=== PATIENT | female | born 1980 | race African-American/Black ===

== ENCOUNTER 2017-06-26 06:07 | Inpatient (IN) ==
[2017-06-26] MEDS ORDERED: INSULIN REGULAR 100 UNIT/ML IV STA (06:42)
[2017-06-26] MEDS ORDERED: ONDANSETRON 4 MG/2 ML VIAL IV STA (06:42)
[2017-06-26] MEDS ORDERED: SODIUM CHLORIDE 0.9% 2,000 ML IV STA (06:42)
[2017-06-26] MEDS ORDERED: METOCLOPRAMIDE 10 MG/2 ML VIAL IV STA (06:42)
[2017-06-26] MEDS ORDERED: KETOROLAC 30 MG/1 ML VIAL IV STA (06:46)
[2017-06-26 06:56] LABS: Basophils % 0.1 % (0.0-0.8); Hematocrit 41.7 VOL% (35.7-47.0); Hemoglobin 13.7 GM/DL (12.0-16.0); Immature Granulocytes % 0.5 %; Immature Granulocytes Absolute 0.09 #; Lymphocytes # 1.2 10*3/uL (1.4-4.0); Lymphocytes % 6.9 % (21.3-54.2); Mean Corpuscular HGB Conc 32.9 GM/DL (32-36); Mean Corpuscular Hemoglobin 31 PG (27-34); Mean Corpuscular Volume 93.3 FL (87-102); Mean Platelet Volume 11.7 FL (9.6-12.0); Monocytes # 0.7 10*3/uL (0.11-0.8); Monocytes % 4.2 % (1.7-12.7); Neutrophils # 14.6 10*3/uL (1.4-7.4); Neutrophils % 88.3 % (38.7-73.9); Platelet Count 233 T/CUMM (130-400); Red Blood Count 4.47 MC/CUMM (3.8-5.5); Red Cell Distribution Width 14.6 % (9.3-17.3); White Blood Count 16.6 T/CUMM (4-12)
[2017-06-26] MEDS ORDERED: METOCLOPRAMIDE 10 MG/2 ML VIAL ONE (07:08)
[2017-06-26] MEDS ORDERED: KETOROLAC 30 MG/1 ML VIAL ONE (07:08)
[2017-06-26] MEDS ORDERED: ONDANSETRON 4 MG/2 ML VIAL ONE (07:08)
[2017-06-26] MEDS ORDERED: INSULIN REGULAR 100 UNIT/ML ONE (07:11)
[2017-06-26 07:22] LABS: ABG Base Excess -14.7 MMOL/L (-2.5-2.5); ABG HCO3 13.4 MMOL/L (20-26); ABG Oxygen Saturation 98.5 % (95-100); ABG PH 7.306 (7.35-7.45); Allen Test Positive; Pt O2 Delivery Device Room Air
[2017-06-26 07:25] LABS: ABG PCO2 20.4 MM HG (35-48)
[2017-06-26 07:39] LABS: Bilirubin,Total 0.4 MG/DL (0.2-1.0); Calcium 9.6 MG/DL (8.5-10.1); Osmolality,Calculated 294.2 MOS/KG (273-304); Potassium 4.5 MMOL/L (3.5-5.1)
[2017-06-26 07:43] LABS: Lactic Acid 2.1 MMOL/L (0.4-2.0)
[2017-06-26 08:15] LABS: Apearance,Urine CLOUDY (Clear); Bacteria,Urine Occasional /HPF (Few); Bilirubin,Urine Negative (Negative); Blood, Urine Moderate mg/dL (Negative); Glucose,Urine (UA) >=500 mg/dL (Negative); Ketones,Urine 80 mg/dL (Negative); Nitrite,Urine Negative (Negative); Protein,Urine 100 MG/DL; RBC,Urine 13 /HPF (0-4); Squamous Epithelial Cell,Urine Moderate /HPF (0-10); Urine Color Yellow (Yellow); Urine Specific Gravity 1.018 (1.001-1.035); Urine Urobilinogen < 2.0 EU/DL (0.2-1.0); WBC,Urine 5 /HPF (0-6)
[2017-06-26] MEDS ORDERED: LEVOFLOXACIN INJ 750 MG in PREMIX 1 EACH IV STA (08:28)
[2017-06-26] MEDS ORDERED: LEVOFLOXACIN INJ 150 ML IV ONE (08:55)
[2017-06-26] MEDS ORDERED: SODIUM CHLORIDE 0.9% IV PRN (09:18)
[2017-06-26] MEDS ORDERED: SODIUM PHOSPHATE IV PRN (09:18)
[2017-06-26] MEDS ORDERED: DEXTROSE 50% 25 GM/50 ML VIAL IV PRN ×3 (09:18→23:51)
[2017-06-26] MEDS ORDERED: SODIUM BICARB INJ 100 MEQ in STERILE WATER INJ 400 ML IV PRN (09:18)
[2017-06-26] MEDS ORDERED: ACETAMINOPHEN 325 MG TABLET PO PRN (09:27)
[2017-06-26] MEDS ORDERED: MAGNESIUM SULF RIDER 4 GM in PREMIX 1 EACH IV PRN (09:27)
[2017-06-26] MEDS ORDERED: POTASSIUM CHLORIDE RIDER 10 MEQ in PREMIX 1 EACH IV PRN (09:27)
[2017-06-26] MEDS ORDERED: MAGNESIUM SULF RIDER 2 GM in PREMIX 1 EACH IV PRN (09:27)
[2017-06-26] MEDS ORDERED: NICOTINE 21 MG/24 HR PATCH TRANSDERM PRN (09:27)
[2017-06-26] MEDS ORDERED: tiZANidine 4 MG TABLET PO PRN (09:42)
[2017-06-26] MEDS ORDERED: INSULIN REGULAR DRIP 100 ML IV SCH (10:00)
[2017-06-26] MEDS ORDERED: ALBUTEROL 2.5 MG/3 ML NEB RESP TX PRN (10:00)
[2017-06-26] MEDS: ENOXAPARIN 40 MG/0.4 ML SYRINGE SUBCUT SCH (10:18)
[2017-06-26] MEDS: MORPHINE 2 MG/1 ML SYRINGE IV PRN ×2 (10:19→21:07)
[2017-06-26] MEDS: PANTOPRAZOLE 40 MG TABLET PO SCH (10:25)
[2017-06-26] MEDS: PREGABALIN 75 MG CAPSULE PO SCH ×2 (10:25→20:03)
[2017-06-26] MEDS: SODIUM CHLORIDE 0.9% 1,000 ML IV SCH ×3 (10:26→13:26)
[2017-06-26 10:32] LABS: Calcium 8.5 MG/DL (8.5-10.1); Osmolality,Calculated 301.4 MOS/KG (273-304); Potassium 4.4 MMOL/L (3.5-5.1)
[2017-06-26 10:33] LABS: Magnesium 2.4 MG/DL (1.8-2.4); Phosphorous 2.4 MG/DL (2.5-4.9)
[2017-06-26 11:31] LABS: ABG Base Excess -9.7 MMOL/L (-2.5-2.5); ABG HCO3 14.4 MMOL/L (20-26); ABG Oxygen Saturation 97.8 % (95-100); ABG PCO2 26.6 MM HG (35-48); ABG PH 7.352 (7.35-7.45); ABG PO2 107.7 MM HG (80-95); ABG TCO2 15.2 MMOL/L (23-27)
[2017-06-26] MEDS ORDERED: oxyCODONE/ACETAMINOPHEN 5-325 MG TABLET PO PRN (11:39)
[2017-06-26] MEDS ORDERED: DEXTROSE 5% NACL 0.9% 1,000 ML IV SCH (12:30)
[2017-06-26] MEDS: DEXTROSE 5% NACL 0.9% 1,000 ML IV SCH ×2 (12:32→17:20)
[2017-06-26 14:09] LABS: Calcium 7.6 MG/DL (8.5-10.1); Osmolality,Calculated 300.1 MOS/KG (273-304)
[2017-06-26] MEDS ORDERED: SODIUM CHLORIDE 0.9% 1,000 ML IV SCH ×2 (14:18→15:00)
[2017-06-26] MEDS: DEXTROSE 5% NACL 0.45% 1,000 ML IV SCH ×2 (15:34→19:46)
[2017-06-26 18:04] LABS: Calcium 7.7 MG/DL (8.5-10.1); Potassium 3.8 MMOL/L (3.5-5.1)
[2017-06-26] MEDS ORDERED: DEXTROSE 5% NACL 0.45% 1,000 ML IV SCH (19:45)
[2017-06-26] MEDS ORDERED: HydrOXYzine PAMOATE 25 MG CAPSULE PO SCH (21:00)
[2017-06-26] MEDS: ONDANSETRON 4 MG/2 ML VIAL IV PRN (21:08)
[2017-06-26] MEDS: POTASSIUM CHLORIDE 20 MEQ TABLET PO PRN (21:59)
[2017-06-26 22:18] LABS: Calcium 7.8 MG/DL (8.5-10.1); Osmolality,Calculated 284.3 MOS/KG (273-304); Potassium 3.5 MMOL/L (3.5-5.1)
[2017-06-26] MEDS ORDERED: GLUCAGON 1 MG VIAL IM PRN (23:51)
[2017-06-27] MEDS ORDERED: INSULIN GLARGINE 100 UNIT/ML SUBCUT SCH ×2 (00:30→09:00)
[2017-06-27 02:36] LABS: Basophils % 0.3 % (0.0-0.8); Eosinophils # 0.1 10*3/uL (0.0-0.87); Eosinophils % 0.9 % (0.00-10.9); Hematocrit 30.2 VOL% (35.7-47.0); Hemoglobin 9.8 GM/DL (12.0-16.0); Immature Granulocytes % 0.4 %; Immature Granulocytes Absolute 0.04 #; Lymphocytes # 2.2 10*3/uL (1.4-4.0); Lymphocytes % 21.2 % (21.3-54.2); Mean Corpuscular HGB Conc 32.5 GM/DL (32-36); Mean Corpuscular Hemoglobin 31 PG (27-34); Mean Platelet Volume 11.6 FL (9.6-12.0); Monocytes # 0.9 10*3/uL (0.11-0.8); Monocytes % 8.3 % (1.7-12.7); Neutrophils # 7.3 10*3/uL (1.4-7.4); Neutrophils % 68.9 % (38.7-73.9); Platelet Count 176 T/CUMM (130-400); Red Blood Count 3.18 MC/CUMM (3.8-5.5); Red Cell Distribution Width 14.6 % (9.3-17.3); White Blood Count 10.5 T/CUMM (4-12)
[2017-06-27 02:58] LABS: Calcium 7.4 MG/DL (8.5-10.1); Osmolality,Calculated 284.8 MOS/KG (273-304); Potassium 4.1 MMOL/L (3.5-5.1)
[2017-06-27 03:12] LABS: Magnesium 1.8 MG/DL (1.8-2.4); Phosphorous 1.7 MG/DL (2.5-4.9); Risk Ratio 5.28
[2017-06-27] MEDS ORDERED: INSULIN REGULAR 100 UNIT/ML SUBCUT SCH ×2 (03:38→11:30)
[2017-06-27] MEDS: SODIUM CHLORIDE 0.45% 1,000 ML IV SCH ×2 (03:50→11:19)
[2017-06-27] MEDS: INSULIN REGULAR 100 UNIT/ML SUBCUT SCH ×2 (04:10→08:01)
[2017-06-27 06:24] LABS: Calcium 7.8 MG/DL (8.5-10.1); Osmolality,Calculated 285.7 MOS/KG (273-304); Potassium 3.7 MMOL/L (3.5-5.1)
[2017-06-27] MEDS: POTASSIUM CHLORIDE 20 MEQ TABLET PO PRN (08:01)
[2017-06-27] MEDS: PREGABALIN 75 MG CAPSULE PO SCH (08:01)
[2017-06-27] MEDS: PANTOPRAZOLE 40 MG TABLET PO SCH (08:02)
[2017-06-27] MEDS: ONDANSETRON 4 MG/2 ML VIAL IV PRN (08:25)
[2017-06-27] MEDS: MORPHINE 2 MG/1 ML SYRINGE IV PRN (08:40)
[2017-06-27] MEDS: ENOXAPARIN 40 MG/0.4 ML SYRINGE SUBCUT SCH (09:04)
[2017-06-27 10:03] VITALS: BP 140/80
[2017-07-03] MEDS ORDERED: BUPRENORPHINE TRANSDERM SCH (09:00)
== END 2017-06-27 12:00 | disposition home or self-care (01) | DRG 420 ==
LOC: N.ED 06:07 → N.EDINP 08:52 → N.CC 09:13
PROVIDERS: ADMIT Family Medicine; ATTEND Family Medicine

== ENCOUNTER 2017-07-08 08:27 | Inpatient (IN) ==
[2017-07-08] MEDS ORDERED: ONDANSETRON 4 MG/2 ML VIAL ONE ×2 (08:41→11:00)
[2017-07-08] MEDS ORDERED: ONDANSETRON 4 MG/2 ML VIAL IV STA ×2 (08:44→08:59)
[2017-07-08] MEDS ORDERED: SODIUM CHLORIDE 0.9% 1,000 ML IV STA (08:59)
[2017-07-08] MEDS ORDERED: INSULIN REGULAR 100 UNIT/ML IV STA (09:00)
[2017-07-08] MEDS ORDERED: INSULIN REGULAR 100 UNIT/ML ONE (09:13)
[2017-07-08 09:23] LABS: Basophils # 0.1 10*3/uL (0.0-0.2); Basophils % 0.7 % (0.0-0.8); Eosinophils # 0.1 10*3/uL (0.0-0.87); Eosinophils % 1.3 % (0.00-10.9); Hematocrit 39.5 VOL% (35.7-47.0); Hemoglobin 12.7 GM/DL (12.0-16.0); Immature Granulocytes % 0.6 %; Immature Granulocytes Absolute 0.06 #; Lymphocytes # 2.4 10*3/uL (1.4-4.0); Lymphocytes % 24.4 % (21.3-54.2); Mean Corpuscular HGB Conc 32.2 GM/DL (32-36); Mean Corpuscular Hemoglobin 31 PG (27-34); Mean Corpuscular Volume 95.9 FL (87-102); Mean Platelet Volume 10.3 FL (9.6-12.0); Monocytes # 0.5 10*3/uL (0.11-0.8); Monocytes % 4.9 % (1.7-12.7); Neutrophils # 6.8 10*3/uL (1.4-7.4); Neutrophils % 68.1 % (38.7-73.9); Platelet Count 473 T/CUMM (130-400); Red Blood Count 4.12 MC/CUMM (3.8-5.5); Red Cell Distribution Width 14.9 % (9.3-17.3); White Blood Count 9.9 T/CUMM (4-12)
[2017-07-08 09:41] LABS: Apearance,Urine CLEAR (Clear); Bilirubin,Urine Negative (Negative); Blood, Urine Small mg/dL (Negative); Glucose,Urine (UA) >=500 mg/dL (Negative); Hyaline Casts,Urine 7 /LPF (0-3); Ketones,Urine 80 mg/dL (Negative); Mucus,Urine Occasional /LPF (Occasional); Nitrite,Urine Negative (Negative); Protein,Urine Negative; Squamous Epithelial Cell,Urine Occasional /HPF (0-10); Urine Color Straw (Yellow); Urine Specific Gravity 1.021 (1.001-1.035); Urine Urobilinogen < 2.0 EU/DL (0.2-1.0); WBC,Urine <1 /HPF (0-6)
[2017-07-08 09:58] LABS: Alanine Aminotransferase 27 U/L (13-56); Albumin 3.6 G/DL (3.4-5.0); Alkaline Phosphatase 102 U/L (45-117); Aspartate Amino Transferase 21 U/L (0-37); Bilirubin,Total < 0.39 MG/DL (0.2-1.0); Blood Urea Nitrogen 21 MG/DL (7-18); Calcium 9.3 MG/DL (8.5-10.1); Glucose 477 MG/DL (74-106); Osmolality,Calculated 289.4 MOS/KG (273-304); Potassium 5.2 MMOL/L (3.5-5.1); Sodium 133 MMOL/L (136-145); Total Protein 7.6 G/DL (6.4-8.3)
[2017-07-08] MEDS ORDERED: POTASSIUM CHLORIDE RIDER 10 MEQ in PREMIX 1 EACH IV PRN (11:01)
[2017-07-08] MEDS ORDERED: MAGNESIUM SULF RIDER 2 GM in PREMIX 1 EACH IV PRN (11:01)
[2017-07-08] MEDS ORDERED: SODIUM BICARB INJ 100 MEQ in STERILE WATER INJ 400 ML IV PRN (11:01)
[2017-07-08] MEDS ORDERED: MAGNESIUM SULF RIDER 4 GM in PREMIX 1 EACH IV PRN (11:01)
[2017-07-08] MEDS ORDERED: SODIUM PHOSPHATE INJ 16.2 MMOL in SODIUM CHLORIDE 0.9% 250 ML IV PRN (11:01)
[2017-07-08] MEDS ORDERED: INSULIN REGULAR 100 UNIT/ML IV ONE (11:01)
[2017-07-08] MEDS ORDERED: DEXTROSE 50% 25 GM/50 ML VIAL IV PRN (11:01)
[2017-07-08] MEDS: SODIUM CHLORIDE 0.9% 1,000 ML IV SCH ×2 (11:49→17:45)
[2017-07-08] MEDS ORDERED: HYDROmorphone 2 MG/1 ML VIAL IV STA (12:03)
[2017-07-08] MEDS ORDERED: HYDROmorphone 2 MG/1 ML VIAL ONE (12:04)
[2017-07-08 12:13] LABS: ABG Base Excess -19.2 MMOL/L (-2.5-2.5); ABG HCO3 6.9 MMOL/L (20-26); ABG Oxygen Saturation 97.4 % (95-100); ABG PO2 111.8 MM HG (80-95); ABG TCO2 7.5 MMOL/L (23-27); Allen Test Positive; Pt O2 Delivery Device Room Air
[2017-07-08 12:22] LABS: ABG PCO2 18.7 MM HG (35-48); ABG PH 7.188 (7.35-7.45)
[2017-07-08 12:36] LABS: Phosphorous 4.6 MG/DL (2.5-4.9)
[2017-07-08] MEDS: INSULIN REGULAR DRIP 100 ML IV SCH (13:00)
[2017-07-08] MEDS ORDERED: SODIUM CHLORIDE 0.9% 1,000 ML IV SCH (14:00)
[2017-07-08] MEDS: HYDROmorphone 2 MG/1 ML VIAL IV PRN ×2 (16:03→20:00)
[2017-07-08] MEDS: ONDANSETRON 4 MG/2 ML VIAL IV PRN (19:08)
[2017-07-08 19:58] LABS: Calcium 8.2 MG/DL (8.5-10.1); Osmolality,Calculated 286.3 MOS/KG (273-304); Potassium 4.7 MMOL/L (3.5-5.1)
[2017-07-08] MEDS: PANTOPRAZOLE 40 MG VIAL IV SCH (21:57)
[2017-07-08] MEDS: DEXT 5% NACL 0.45% KCL 20 MEQ 20 MEQ/1,000 ML BAG IV SCH (22:00)
[2017-07-08] MEDS: ZALEPLON 5 MG CAPSULE PO PRN (23:01)
[2017-07-08 23:30] LABS: Osmolality,Calculated 286.4 MOS/KG (273-304); Potassium 4.6 MMOL/L (3.5-5.1)
[2017-07-08] MEDS: SODIUM CHLOR 0.45% KCL 20 MEQ 20 MEQ/1,000 ML BAG IV SCH (23:45)
[2017-07-09] MEDS: HYDROmorphone 2 MG/1 ML VIAL IV PRN ×6 (00:07→20:20)
[2017-07-09] MEDS: DEXT 5% NACL 0.45% KCL 20 MEQ 20 MEQ/1,000 ML BAG IV SCH ×3 (03:38→12:07)
[2017-07-09 04:31] LABS: Basophils % 0.3 % (0.0-0.8); Eosinophils # 0.1 10*3/uL (0.0-0.87); Eosinophils % 0.7 % (0.00-10.9); Hemoglobin 10.4 GM/DL (12.0-16.0); Immature Granulocytes % 0.3 %; Immature Granulocytes Absolute 0.04 #; Lymphocytes # 2.9 10*3/uL (1.4-4.0); Lymphocytes % 20.5 % (21.3-54.2); Mean Corpuscular HGB Conc 32.5 GM/DL (32-36); Mean Corpuscular Hemoglobin 30 PG (27-34); Mean Corpuscular Volume 93.6 FL (87-102); Monocytes # 0.9 10*3/uL (0.11-0.8); Monocytes % 6.4 % (1.7-12.7); Neutrophils # 10.3 10*3/uL (1.4-7.4); Neutrophils % 71.8 % (38.7-73.9); Platelet Count 397 T/CUMM (130-400); Red Blood Count 3.42 MC/CUMM (3.8-5.5); Red Cell Distribution Width 15.1 % (9.3-17.3); White Blood Count 14.3 T/CUMM (4-12)
[2017-07-09 04:57] LABS: Calcium 8.3 MG/DL (8.5-10.1); Osmolality,Calculated 281.5 MOS/KG (273-304); Potassium 4.1 MMOL/L (3.5-5.1)
[2017-07-09 05:05] LABS: Magnesium 1.8 MG/DL (1.8-2.4); Phosphorous 1.4 MG/DL (2.5-4.9)
[2017-07-09] MEDS: SODIUM CHLOR 0.45% KCL 20 MEQ 20 MEQ/1,000 ML BAG IV SCH ×4 (05:15→15:46)
[2017-07-09] MEDS: DEXTROSE 50% 25 GM/50 ML VIAL IV PRN ×2 (07:41→09:12)
[2017-07-09 07:46] LABS: Osmolality,Calculated 276.4 MOS/KG (273-304); Potassium 3.8 MMOL/L (3.5-5.1)
[2017-07-09 09:04] LABS: Allen Test Positive; Pt O2 Delivery Device Room Air
[2017-07-09 09:05] LABS: ABG Base Excess -6.7 MMOL/L (-2.5-2.5); ABG HCO3 18.9 MMOL/L (20-26); ABG Oxygen Saturation 96.8 % (95-100); ABG PCO2 36.4 MM HG (35-48); ABG PH 7.321 (7.35-7.45); ABG PO2 83.1 MM HG (80-95); ABG TCO2 17.3 MMOL/L (23-27)
[2017-07-09 09:55] LABS: Apearance,Urine Slightly Hazy (Clear); Bacteria,Urine Occasional /HPF (Few); Bilirubin,Urine Negative (Negative); Blood, Urine Small mg/dL (Negative); Glucose,Urine (UA) Negative (Negative); Ketones,Urine 5 mg/dL (Negative); Mucus,Urine Occasional /LPF (Occasional); Nitrite,Urine Negative (Negative); Protein,Urine Negative; RBC,Urine 7 /HPF (0-4); Squamous Epithelial Cell,Urine Occasional /HPF (0-10); Urine Color Yellow (Yellow); Urine Specific Gravity 1.016 (1.001-1.035); Urine Urobilinogen < 2.0 EU/DL (0.2-1.0); WBC,Urine 32 /HPF (0-6)
[2017-07-09] MEDS: ONDANSETRON 4 MG/2 ML VIAL IV PRN (10:59)
[2017-07-09] MEDS: PANTOPRAZOLE 40 MG VIAL IV SCH ×2 (10:59→20:18)
[2017-07-09 11:35] LABS: Calcium 8.1 MG/DL (8.5-10.1); Magnesium 2.2 MG/DL (1.8-2.4)
[2017-07-09] MEDS: SODIUM CHLORIDE 0.45% 1,000 ML IV SCH ×2 (12:10→12:11)
[2017-07-09] MEDS: INSULIN GLARGINE 100 UNIT/ML SUBCUT SCH (12:22)
[2017-07-09] MEDS ORDERED: GLUCAGON 1 MG VIAL IM PRN (13:00)
[2017-07-09] MEDS: INSULIN REGULAR DRIP 100 ML IV SCH (13:13)
[2017-07-09] MEDS ORDERED: IBUPROFEN 400 MG TABLET PO PRN (15:42)
[2017-07-09] MEDS ORDERED: tiZANidine 4 MG TABLET PO PRN (15:43)
[2017-07-09] MEDS: INSULIN LISPRO 100 UNIT/ML SUBCUT SCH ×2 (16:04→20:02)
[2017-07-09] MEDS ORDERED: ALBUTEROL 2.5 MG/3 ML NEB RESP TX PRN (18:51)
[2017-07-09] MEDS: PREGABALIN 75 MG CAPSULE PO SCH (20:18)
[2017-07-10] MEDS: ONDANSETRON 4 MG/2 ML VIAL IV PRN ×3 (00:24→13:13)
[2017-07-10] MEDS: HYDROmorphone 2 MG/1 ML VIAL IV PRN ×6 (00:26→22:18)
[2017-07-10] MEDS: DEXT 5% NACL 0.45% KCL 20 MEQ 20 MEQ/1,000 ML BAG IV SCH ×2 (03:14→15:59)
[2017-07-10 05:42] LABS: Basophils # 0.1 10*3/uL (0.0-0.2); Basophils % 0.7 % (0.0-0.8); Eosinophils # 0.2 10*3/uL (0.0-0.87); Eosinophils % 3.5 % (0.00-10.9); Hematocrit 34.1 VOL% (35.7-47.0); Hemoglobin 10.9 GM/DL (12.0-16.0); Immature Granulocytes % 0.3 %; Immature Granulocytes Absolute 0.02 #; Lymphocytes # 2.6 10*3/uL (1.4-4.0); Lymphocytes % 37.7 % (21.3-54.2); Mean Corpuscular Hemoglobin 30 PG (27-34); Mean Corpuscular Volume 92.9 FL (87-102); Mean Platelet Volume 10.7 FL (9.6-12.0); Monocytes # 0.4 10*3/uL (0.11-0.8); Monocytes % 5.9 % (1.7-12.7); Neutrophils # 3.6 10*3/uL (1.4-7.4); Neutrophils % 51.9 % (38.7-73.9); Platelet Count 387 T/CUMM (130-400); Red Blood Count 3.67 MC/CUMM (3.8-5.5); Red Cell Distribution Width 15.3 % (9.3-17.3)
[2017-07-10 06:16] LABS: Calcium 8.2 MG/DL (8.5-10.1); Osmolality,Calculated 272.7 MOS/KG (273-304); Potassium 4.1 MMOL/L (3.5-5.1)
[2017-07-10] MEDS: INSULIN LISPRO 100 UNIT/ML SUBCUT SCH ×4 (07:38→16:36)
[2017-07-10] MEDS: PANTOPRAZOLE 40 MG VIAL IV SCH ×2 (09:03→20:37)
[2017-07-10] MEDS ORDERED: LIDOCAINE 2% 5 ML VIAL ONE (10:52)
[2017-07-10] MEDS ORDERED: PROPOFOL 200 MG/20 ML VIAL IV ONE (10:52)
[2017-07-10] MEDS: INSULIN GLARGINE 100 UNIT/ML SUBCUT SCH (12:28)
[2017-07-10] MEDS: PREGABALIN 75 MG CAPSULE PO SCH ×2 (12:32→20:37)
[2017-07-10] MEDS: FLUCONAZOLE 100 MG TABLET PO SCH (16:34)
[2017-07-10] MEDS: ZALEPLON 5 MG CAPSULE PO PRN (22:18)
[2017-07-11] MEDS: HYDROmorphone 2 MG/1 ML VIAL IV PRN ×6 (02:02→21:30)
[2017-07-11] MEDS: oxyCODONE/ACETAMINOPHEN 5-325 MG TABLET PO PRN (03:42)
[2017-07-11] MEDS: INSULIN GLARGINE 100 UNIT/ML SUBCUT SCH (08:54)
[2017-07-11] MEDS: INSULIN LISPRO 100 UNIT/ML SUBCUT SCH ×3 (08:55→17:12)
[2017-07-11] MEDS: FLUCONAZOLE 100 MG TABLET PO SCH (08:56)
[2017-07-11] MEDS: PANTOPRAZOLE 40 MG VIAL IV SCH (08:56)
[2017-07-11] MEDS: PREGABALIN 75 MG CAPSULE PO SCH ×2 (08:56→20:54)
[2017-07-11 09:47] LABS: Calcium 8.7 MG/DL (8.5-10.1); Osmolality,Calculated 286.2 MOS/KG (273-304); Potassium 4.3 MMOL/L (3.5-5.1)
[2017-07-11] MEDS ORDERED: INSULIN GLARGINE 100 UNIT/ML SUBCUT SCH (10:48)
[2017-07-11] MEDS ORDERED: INSULIN NPH 100 UNIT/ML SUBCUT ONE (11:00)
[2017-07-11] MEDS: SODIUM CHLORIDE 0.45% 1,000 ML IV SCH ×2 (11:24→11:34)
[2017-07-11] MEDS ORDERED: DEXTROSE 50% 25 GM/50 ML VIAL IV PRN (15:17)
[2017-07-11] MEDS ORDERED: GLUCAGON 1 MG VIAL IM PRN (15:17)
[2017-07-11 15:36] LABS: Calcium 9.1 MG/DL (8.5-10.1); Osmolality,Calculated 275.5 MOS/KG (273-304); Potassium 3.9 MMOL/L (3.5-5.1)
[2017-07-11] MEDS: INSULIN REGULAR 100 UNIT/ML SUBCUT SCH ×2 (16:13→20:05)
[2017-07-11] MEDS: ONDANSETRON 4 MG/2 ML VIAL IV PRN (17:17)
[2017-07-11 17:24] LABS: Calcium 8.7 MG/DL (8.5-10.1); Osmolality,Calculated 270.8 MOS/KG (273-304); Potassium 3.8 MMOL/L (3.5-5.1)
[2017-07-11] MEDS: ZALEPLON 5 MG CAPSULE PO PRN (21:29)
[2017-07-12] MEDS: oxyCODONE/ACETAMINOPHEN 5-325 MG TABLET PO PRN ×2 (00:33→11:49)
[2017-07-12] MEDS: HYDROmorphone 2 MG/1 ML VIAL IV PRN ×4 (01:24→15:01)
[2017-07-12] MEDS: ONDANSETRON 4 MG/2 ML VIAL IV PRN (02:26)
[2017-07-12] MEDS: SODIUM CHLORIDE 0.45% 1,000 ML IV SCH ×5 (05:43→20:41)
[2017-07-12 07:13] LABS: Calcium 8.3 MG/DL (8.5-10.1); Osmolality,Calculated 284.8 MOS/KG (273-304); Potassium 4.1 MMOL/L (3.5-5.1)
[2017-07-12] MEDS: FLUCONAZOLE 100 MG TABLET PO SCH (08:30)
[2017-07-12] MEDS: PREGABALIN 75 MG CAPSULE PO SCH ×2 (08:30→20:40)
[2017-07-12] MEDS: INSULIN REGULAR 100 UNIT/ML SUBCUT SCH ×4 (08:30→20:26)
[2017-07-12] MEDS: INSULIN LISPRO 100 UNIT/ML SUBCUT SCH ×3 (09:46→17:20)
[2017-07-12] MEDS ORDERED: INSULIN GLARGINE 100 UNIT/ML SUBCUT SCH ×2 (09:53→21:00)
[2017-07-12] MEDS ORDERED: INSULIN NPH 100 UNIT/ML SUBCUT ONE (10:00)
[2017-07-12] MEDS: NICOTINE 21 MG/24 HR PATCH TRANSDERM SCH (11:43)
[2017-07-12] MEDS ORDERED: ZOLPIDEM 5 MG TABLET PO PRN (12:02)
[2017-07-12] MEDS: ALPRAZolam 0.25 MG TABLET PO PRN ×2 (13:23→21:59)
[2017-07-12] MEDS: TAMSULOSIN 0.4 MG CAPSULE PO SCH ×2 (18:32→20:40)
[2017-07-12] MEDS: ZALEPLON 5 MG CAPSULE PO PRN ×2 (20:40→21:59)
[2017-07-12 21:11] LABS: Apearance,Urine Slightly Hazy (Clear); Bilirubin,Urine Negative (Negative); Blood, Urine Moderate mg/dL (Negative); Glucose,Urine (UA) 50 mg/dL (Negative); Ketones,Urine 5 mg/dL (Negative); Mucus,Urine Occasional /LPF (Occasional); Nitrite,Urine Negative (Negative); Protein,Urine Negative; RBC,Urine 5 /HPF (0-4); Squamous Epithelial Cell,Urine Few /HPF (0-10); Urine Color Yellow (Yellow); Urine Specific Gravity 1.011 (1.001-1.035); Urine Urobilinogen < 2.0 EU/DL (0.2-1.0); WBC,Urine 16 /HPF (0-6)
[2017-07-13] MEDS ORDERED: ALPRAZolam 0.25 MG TABLET PO ONE (00:48)
[2017-07-13] MEDS: oxyCODONE/ACETAMINOPHEN 5-325 MG TABLET PO PRN ×2 (01:22→10:56)
[2017-07-13] MEDS ORDERED: hydrALAZINE 10 MG TABLET PO ONE (02:31)
[2017-07-13] MEDS: SODIUM CHLORIDE 0.45% 1,000 ML IV SCH (02:45)
[2017-07-13 06:57] LABS: Calcium 8.4 MG/DL (8.5-10.1); Osmolality,Calculated 285.7 MOS/KG (273-304); Potassium 3.8 MMOL/L (3.5-5.1)
[2017-07-13] MEDS: INSULIN REGULAR 100 UNIT/ML SUBCUT SCH (07:30)
[2017-07-13] MEDS ORDERED: LISINOPRIL 10 MG TABLET PO SCH (10:00)
[2017-07-13] MEDS ORDERED: INSULIN GLARGINE 100 UNIT/ML SUBCUT SCH (10:00)
[2017-07-13] MEDS: PREGABALIN 75 MG CAPSULE PO SCH (10:55)
[2017-07-13] MEDS: NICOTINE 21 MG/24 HR PATCH TRANSDERM SCH (10:57)
[2017-07-13] MEDS: FLUCONAZOLE 100 MG TABLET PO SCH (11:00)
[2017-07-13] MEDS: INSULIN LISPRO 100 UNIT/ML SUBCUT SCH (11:01)
[2017-07-13 12:13] VITALS: BP 115/65
== END 2017-07-13 13:30 | disposition home or self-care (01) | DRG 420 ==
LOC: EDUNIT# → EDBD → N.ED 08:27 → N.EDINP 10:32 → N.CC 18:35 → N.4E 07-10 18:35
PROVIDERS: ADMIT Hospitalist; ATTEND Hospitalist

== ENCOUNTER 2017-08-13 15:05 | Inpatient (IN) ==
[2017-08-13] MEDS ORDERED: ONDANSETRON 4 MG/2 ML VIAL ONE (16:04)
[2017-08-13] MEDS ORDERED: MORPHINE 2 MG/1 ML SYRINGE ONE (16:12)
[2017-08-13] MEDS ORDERED: SODIUM CHLORIDE 0.9% 1,000 ML IV STA (16:13)
[2017-08-13] MEDS ORDERED: ONDANSETRON 4 MG/2 ML VIAL IV STA (16:14)
[2017-08-13] MEDS ORDERED: MORPHINE 2 MG/1 ML SYRINGE IV STA (16:14)
[2017-08-13 16:22] LABS: Basophils # 0.1 10*3/uL (0.0-0.2); Basophils % 0.7 % (0.0-0.8); Eosinophils % 0.1 % (0.00-10.9); Hematocrit 37.4 VOL% (35.7-47.0); Hemoglobin 11.3 GM/DL (12.0-16.0); Immature Granulocytes % 1.2 %; Immature Granulocytes Absolute 0.16 #; Lymphocytes # 1.3 10*3/uL (1.4-4.0); Lymphocytes % 9.2 % (21.3-54.2); Mean Corpuscular HGB Conc 30.2 GM/DL (32-36); Mean Corpuscular Hemoglobin 31 PG (27-34); Mean Corpuscular Volume 102.7 FL (87-102); Mean Platelet Volume 11.2 FL (9.6-12.0); Monocytes # 0.3 10*3/uL (0.11-0.8); Monocytes % 2.4 % (1.7-12.7); Neutrophils # 11.9 10*3/uL (1.4-7.4); Neutrophils % 86.4 % (38.7-73.9); Platelet Count 436 T/CUMM (130-400); Red Blood Count 3.64 MC/CUMM (3.8-5.5); Red Cell Distribution Width 16.9 % (9.3-17.3); White Blood Count 13.8 T/CUMM (4-12)
[2017-08-13 16:29] LABS: Amorphous Crystals,Urine Occasional /HPF (Few); Apearance,Urine CLEAR (Clear); Bacteria,Urine Occasional /HPF (Few); Bilirubin,Urine Negative (Negative); Blood, Urine Small mg/dL (Negative); Glucose,Urine (UA) >=500 mg/dL (Negative); Hyaline Casts,Urine 6 /LPF (0-3); Ketones,Urine 80 mg/dL (Negative); Mucus,Urine Occasional /LPF (Occasional); Nitrite,Urine Negative (Negative); Protein,Urine 30 MG/DL; RBC,Urine <1 /HPF (0-4); Urine Color Straw (Yellow); Urine Specific Gravity 1.011 (1.001-1.035); Urine Urobilinogen < 2.0 EU/DL (0.2-1.0); WBC,Urine 1 /HPF (0-6)
[2017-08-13 16:38] LABS: ABG Base Excess -25.5 MMOL/L (-2.5-2.5); ABG HCO3 6.8 MMOL/L (20-26); ABG Oxygen Saturation 97.5 % (95-100); ABG TCO2 3.9 MMOL/L (23-27)
[2017-08-13 16:39] LABS: ABG PH 7.057 (7.35-7.45)
[2017-08-13 16:40] LABS: ABG PCO2 14.4 MM HG (35-48)
[2017-08-13] MEDS ORDERED: KETOROLAC 30 MG/1 ML VIAL IV STA (16:56)
[2017-08-13] MEDS ORDERED: KETOROLAC 30 MG/1 ML VIAL ONE (16:56)
[2017-08-13] MEDS ORDERED: INSULIN REGULAR 100 UNIT/ML IV STA (16:56)
[2017-08-13] MEDS ORDERED: INSULIN REGULAR 100 UNIT/ML ONE (16:57)
[2017-08-13 16:59] LABS: Alanine Aminotransferase 14 U/L (13-56); Albumin 3.6 G/DL (3.4-5.0); Alkaline Phosphatase 81 U/L (45-117); Amylase 46 U/L (25-115); Aspartate Amino Transferase 8 U/L (0-37); Bilirubin,Total < 0.39 MG/DL (0.2-1.0); Blood Urea Nitrogen 22 MG/DL (7-18); Calcium 9.2 MG/DL (8.5-10.1); Glucose 418 MG/DL (74-106); Magnesium 2.1 MG/DL (1.8-2.4); Osmolality,Calculated 290.1 MOS/KG (273-304); Potassium 5.6 MMOL/L (3.5-5.1); Sodium 135 MMOL/L (136-145); Total Protein 7.5 G/DL (6.4-8.3)
[2017-08-13 18:08] LABS: Barbiturates Screen,Urine Negative (Negative); Benzodiazepines Screen,Urine Positive (Negative); Cannabinoid Screen,Urine Negative (Negative); Opiate Screen,Urine Negative (Negative); Phencyclidine Screen,Urine Negative (Negative)
[2017-08-13] MEDS ORDERED: SODIUM PHOSPHATE INJ 16.8 MMOL in SODIUM CHLORIDE 0.9% 250 ML IV PRN (18:12)
[2017-08-13] MEDS ORDERED: SODIUM CHLORIDE 0.9% 1,000 ML IV ONE (18:12)
[2017-08-13] MEDS ORDERED: MAGNESIUM SULF RIDER 2 GM in PREMIX 1 EACH IV PRN (18:12)
[2017-08-13] MEDS ORDERED: INSULIN REGULAR 100 UNIT/ML IV ONE (18:12)
[2017-08-13] MEDS ORDERED: DEXTROSE 50% 25 GM/50 ML VIAL IV PRN ×2 (18:12)
[2017-08-13] MEDS ORDERED: POTASSIUM CHLORIDE RIDER 10 MEQ in PREMIX 1 EACH IV PRN (18:12)
[2017-08-13] MEDS ORDERED: MAGNESIUM SULF RIDER 4 GM in PREMIX 1 EACH IV PRN (18:12)
[2017-08-13] MEDS ORDERED: SODIUM BICARB INJ 100 MEQ in STERILE WATER INJ 400 ML IV PRN (18:12)
[2017-08-13] MEDS ORDERED: tiZANidine 4 MG TABLET PO PRN (18:22)
[2017-08-13] MEDS ORDERED: ALPRAZolam 0.25 MG TABLET PO PRN (18:22)
[2017-08-13] MEDS ORDERED: ALBUTEROL 2.5 MG/3 ML NEB RESP TX PRN (18:22)
[2017-08-13] MEDS ORDERED: ZALEPLON 5 MG CAPSULE PO PRN (18:22)
[2017-08-13] MEDS ORDERED: guaiFENesin/DM ER 600-30 MG TABLET PO PRN (18:24)
[2017-08-13] MEDS ORDERED: diphenhydrAMINE CAP 25 MG CAPSULE PO PRN (18:24)
[2017-08-13] MEDS ORDERED: ACETAMINOPHEN 325 MG TABLET PO PRN ×2 (18:24)
[2017-08-13] MEDS ORDERED: DOCUSATE SODIUM 100 MG CAPSULE PO PRN (18:24)
[2017-08-13] MEDS ORDERED: NICOTINE 21 MG/24 HR PATCH TRANSDERM PRN (18:24)
[2017-08-13] MEDS ORDERED: INSULIN REGULAR DRIP 100 ML IV SCH (18:30)
[2017-08-13] MEDS: ONDANSETRON 4 MG/2 ML VIAL IV PRN (20:15)
[2017-08-13] MEDS: MORPHINE 2 MG/1 ML SYRINGE IV PRN ×2 (20:15→22:28)
[2017-08-13 20:41] LABS: Hematocrit 35.4 VOL% (35.7-47.0); Hemoglobin 10.6 GM/DL (12.0-16.0)
[2017-08-13] MEDS: PROMETHAZINE 25 MG/1 ML VIAL IM PRN (20:42)
[2017-08-13 21:10] LABS: Osmolality,Calculated 290.7 MOS/KG (273-304); Potassium 5.6 MMOL/L (3.5-5.1)
[2017-08-13 21:11] LABS: Magnesium 2.2 MG/DL (1.8-2.4); Phosphorous 3.8 MG/DL (2.5-4.9)
[2017-08-13] MEDS ORDERED: PROMETHAZINE INJ 25 MG in SODIUM CHLORIDE 0.9% 50 ML IV ONE (21:11)
[2017-08-13] MEDS ORDERED: METOCLOPRAMIDE 10 MG/2 ML VIAL IV PRN (21:11)
[2017-08-13] MEDS: TAMSULOSIN 0.4 MG CAPSULE PO SCH ×2 (22:12→23:07)
[2017-08-13] MEDS: PANTOPRAZOLE 40 MG TABLET PO SCH ×2 (22:12→23:07)
[2017-08-13] MEDS: SODIUM CHLORIDE 0.9% 1,000 ML IV SCH ×2 (22:33→23:47)
[2017-08-13 22:45] LABS: ABG Base Excess -23.7 MMOL/L (-2.5-2.5); ABG HCO3 7.7 MMOL/L (20-26); ABG TCO2 4.1 MMOL/L (23-27)
[2017-08-13 22:48] LABS: ABG PCO2 12.4 MM HG (35-48); ABG PH 7.152 (7.35-7.45)
[2017-08-13 22:56] LABS: Calcium 8.2 MG/DL (8.5-10.1); Osmolality,Calculated 289.3 MOS/KG (273-304)
[2017-08-13] MEDS: PREGABALIN 75 MG CAPSULE PO SCH (23:07)
[2017-08-13] MEDS: oxyCODONE/ACETAMINOPHEN 5-325 MG TABLET PO PRN (23:07)
[2017-08-13] MEDS ORDERED: SODIUM CHLORIDE 0.9% 1,000 ML IV SCH (23:12)
[2017-08-13] MEDS ORDERED: DEXTROSE 5% NACL 0.9% 1,000 ML IV SCH (23:30)
[2017-08-14] MEDS ORDERED: SODIUM CHLORIDE 0.9% 1,000 ML IV SCH (02:00)
[2017-08-14 03:24] LABS: Basophils % 0.2 % (0.0-0.8); Eosinophils % 0.1 % (0.00-10.9); Hematocrit 28.6 VOL% (35.7-47.0); Immature Granulocytes % 0.8 %; Immature Granulocytes Absolute 0.12 #; Lymphocytes # 3.6 10*3/uL (1.4-4.0); Lymphocytes % 23.8 % (21.3-54.2); Mean Corpuscular HGB Conc 31.5 GM/DL (32-36); Mean Corpuscular Hemoglobin 31 PG (27-34); Mean Corpuscular Volume 97.9 FL (87-102); Mean Platelet Volume 10.7 FL (9.6-12.0); Monocytes # 0.9 10*3/uL (0.11-0.8); Monocytes % 6.2 % (1.7-12.7); Neutrophils # 10.3 10*3/uL (1.4-7.4); Neutrophils % 68.9 % (38.7-73.9); Platelet Count 350 T/CUMM (130-400); Red Blood Count 2.92 MC/CUMM (3.8-5.5); Red Cell Distribution Width 16.8 % (9.3-17.3); White Blood Count 14.9 T/CUMM (4-12)
[2017-08-14 03:44] LABS: Calcium 7.8 MG/DL (8.5-10.1); Osmolality,Calculated 287.1 MOS/KG (273-304)
[2017-08-14 03:44] LABS: ABG Base Excess -13.9 MMOL/L (-2.5-2.5); ABG HCO3 11.2 MMOL/L (20-26); ABG Oxygen Saturation 97.9 % (95-100); ABG PH 7.286 (7.35-7.45); ABG TCO2 11.9 MMOL/L (23-27)
[2017-08-14 04:06] LABS: Magnesium 1.8 MG/DL (1.8-2.4); Phosphorous 1.4 MG/DL (2.5-4.9)
[2017-08-14] MEDS: DEXT 5% NACL 0.45% KCL 20 MEQ 20 MEQ/1,000 ML BAG IV SCH ×3 (04:34→12:46)
[2017-08-14] MEDS ORDERED: SODIUM CHLORIDE 0.9% 500 ML IV ONE (04:44)
[2017-08-14 04:53] LABS: ABG HCO3 7.1 MMOL/L (20-26); ABG PH 7.233 (7.35-7.45); ABG PO2 113.6 MM HG (80-95); ABG TCO2 7.7 MMOL/L (23-27); Allen Test Positive; Pt O2 Delivery Device Room Air
[2017-08-14 04:54] LABS: ABG Base Excess -18.4 MMOL/L (-2.5-2.5); ABG PCO2 17.3 MM HG (35-48)
[2017-08-14] MEDS: PREGABALIN 75 MG CAPSULE PO SCH ×2 (08:09→21:01)
[2017-08-14] MEDS: PANTOPRAZOLE 40 MG TABLET PO SCH ×2 (08:09→21:01)
[2017-08-14] MEDS: MORPHINE 2 MG/1 ML SYRINGE IV PRN ×3 (08:09→17:38)
[2017-08-14 08:17] LABS: Hematocrit 27.7 VOL% (35.7-47.0); Hemoglobin 8.7 GM/DL (12.0-16.0)
[2017-08-14 09:00] LABS: Calcium 7.7 MG/DL (8.5-10.1); Osmolality,Calculated 283.1 MOS/KG (273-304); Potassium 3.8 MMOL/L (3.5-5.1)
[2017-08-14] MEDS ORDERED: LISINOPRIL 10 MG TABLET PO SCH (09:00)
[2017-08-14] MEDS: ONDANSETRON 4 MG/2 ML VIAL IV PRN (10:14)
[2017-08-14] MEDS: oxyCODONE/ACETAMINOPHEN 5-325 MG TABLET PO PRN ×2 (10:22→21:00)
[2017-08-14 10:57] LABS: Calcium 7.7 MG/DL (8.5-10.1); Osmolality,Calculated 280.3 MOS/KG (273-304); Potassium 3.5 MMOL/L (3.5-5.1)
[2017-08-14] MEDS ORDERED: SODIUM CHLORIDE 0.45% 1,000 ML IV SCH (11:12)
[2017-08-14] MEDS ORDERED: INSULIN GLARGINE 100 UNIT/ML SUBCUT ONE ×2 (11:30→13:00)
[2017-08-14 11:40] LABS: Apearance,Urine Slightly Hazy (Clear); Bilirubin,Urine Negative (Negative); Blood, Urine Large mg/dL (Negative); Glucose,Urine (UA) Negative (Negative); Hyaline Casts,Urine 5 /LPF (0-3); Ketones,Urine 5 mg/dL (Negative); Mucus,Urine Occasional /LPF (Occasional); Nitrite,Urine Negative (Negative); Protein,Urine Negative; RBC,Urine 56 /HPF (0-4); Squamous Epithelial Cell,Urine Occasional /HPF (0-10); Urine Color Yellow (Yellow); Urine Specific Gravity 1.013 (1.001-1.035); Urine Urobilinogen < 2.0 EU/DL (0.2-1.0); WBC,Urine 60 /HPF (0-6)
[2017-08-14] MEDS: LEVOFLOXACIN INJ 500 MG in PREMIX 1 EACH IV SCH (12:03)
[2017-08-14] MEDS: PROMETHAZINE 25 MG/1 ML VIAL IM PRN (12:16)
[2017-08-14] MEDS: INSULIN LISPRO 100 UNIT/ML SUBCUT SCH ×2 (12:33→16:30)
[2017-08-14 16:42] LABS: Calcium 7.8 MG/DL (8.5-10.1); Osmolality,Calculated 275.4 MOS/KG (273-304); Potassium 3.6 MMOL/L (3.5-5.1)
[2017-08-14] MEDS: SODIUM CHLORIDE 0.9% 1,000 ML IV SCH (17:24)
[2017-08-14] MEDS: TAMSULOSIN 0.4 MG CAPSULE PO SCH (21:01)
[2017-08-14] MEDS: SODIUM BICARBONATE 650 MG TABLET PO SCH (21:01)
[2017-08-15] MEDS: MORPHINE 2 MG/1 ML SYRINGE IV PRN ×3 (00:06→09:52)
[2017-08-15] MEDS: SODIUM CHLORIDE 0.9% 1,000 ML IV SCH ×2 (02:05→08:08)
[2017-08-15 04:51] LABS: Basophils # 0.1 10*3/uL (0.0-0.2); Basophils % 0.6 % (0.0-0.8); Eosinophils # 0.2 10*3/uL (0.0-0.87); Eosinophils % 2.5 % (0.00-10.9); Hematocrit 26.7 VOL% (35.7-47.0); Hemoglobin 8.8 GM/DL (12.0-16.0); Immature Granulocytes % 0.5 %; Immature Granulocytes Absolute 0.04 #; Lymphocytes % 34.9 % (21.3-54.2); Mean Corpuscular Hemoglobin 31 PG (27-34); Mean Corpuscular Volume 93.4 FL (87-102); Mean Platelet Volume 11.2 FL (9.6-12.0); Monocytes # 0.7 10*3/uL (0.11-0.8); Monocytes % 8.1 % (1.7-12.7); Neutrophils # 4.5 10*3/uL (1.4-7.4); Neutrophils % 53.4 % (38.7-73.9); Platelet Count 328 T/CUMM (130-400); Red Blood Count 2.86 MC/CUMM (3.8-5.5); White Blood Count 8.5 T/CUMM (4-12)
[2017-08-15 05:23] LABS: Calcium 8.1 MG/DL (8.5-10.1); Osmolality,Calculated 278.3 MOS/KG (273-304); Potassium 3.6 MMOL/L (3.5-5.1)
[2017-08-15] MEDS: INSULIN LISPRO 100 UNIT/ML SUBCUT SCH ×2 (08:08→11:01)
[2017-08-15] MEDS: PREGABALIN 75 MG CAPSULE PO SCH (08:10)
[2017-08-15] MEDS: PANTOPRAZOLE 40 MG TABLET PO SCH (08:10)
[2017-08-15] MEDS: SODIUM BICARBONATE 650 MG TABLET PO SCH (08:10)
[2017-08-15] MEDS ORDERED: INSULIN GLARGINE 100 UNIT/ML SUBCUT SCH (09:00)
[2017-08-15] MEDS: LEVOFLOXACIN INJ 500 MG in PREMIX 1 EACH IV SCH (11:06)
[2017-08-15 11:51] VITALS: BP 155/83
== END 2017-08-15 13:38 | disposition home or self-care (01) | DRG 420 ==
LOC: EDUNIT# → N.ED 15:05 → SUPCPDRO 17:44 → N.EDINP 17:44 → N.CC 18:56 → N.3E 08-14 16:46
PROVIDERS: ADMIT Hospitalist; ATTEND Hospitalist

== ENCOUNTER 2018-04-02 12:34 | Inpatient (IN) ==
[2018-04-02] MEDS ORDERED: SODIUM CHLORIDE 0.9% 2,000 ML IV STA (12:57)
[2018-04-02] MEDS ORDERED: PANTOPRAZOLE 40 MG VIAL IV STA (12:57)
[2018-04-02] MEDS ORDERED: INSULIN REGULAR 100 UNIT/ML IV STA (12:59)
[2018-04-02] MEDS ORDERED: ONDANSETRON 4 MG/2 ML VIAL IV STA (13:11)
[2018-04-02 14:11] LABS: Alanine Aminotransferase 19 U/L (13-56); Albumin 2.9 G/DL (3.4-5.0); Alkaline Phosphatase 121 U/L (45-117); Aspartate Amino Transferase 16 U/L (0-37); Blood Urea Nitrogen 42 MG/DL (7-18); Calcium 9.1 MG/DL (8.5-10.1); Osmolality,Calculated 325.8 MOS/KG (273-304); Sodium 130 MMOL/L (136-145); Total Protein 7.3 G/DL (6.4-8.3); Troponin I Only < 0.015 NG/ML (0.00-0.045)
[2018-04-02 14:22] LABS: Basophils # 0.1 10*3/uL (0.0-0.2); Basophils % 0.2 % (0.0-0.8); Eosinophils # 0.1 10*3/uL (0.0-0.87); Eosinophils % 0.2 % (0.00-10.9); Hematocrit 39.8 VOL% (35.7-47.0); Hemoglobin 11.4 GM/DL (12.0-16.0); Immature Granulocytes % 5.4 %; Immature Granulocytes Absolute 1.84 #; Lymphocytes # 5.1 10*3/uL (1.4-4.0); Lymphocytes % 14.9 % (21.3-54.2); Mean Corpuscular HGB Conc 28.6 GM/DL (32-36); Mean Corpuscular Hemoglobin 30 PG (27-34); Mean Corpuscular Volume 106.1 FL (87-102); Mean Platelet Volume 13.1 FL (9.6-12.0); Monocytes # 2.2 10*3/uL (0.11-0.8); Monocytes % 6.4 % (1.7-12.7); NRBC # 0.06 10*3/uL; Neutrophils % 72.9 % (38.7-73.9); Platelet Count 305 T/CUMM (130-400); Red Blood Count 3.75 MC/CUMM (3.8-5.5); Red Cell Distribution Width 17.7 % (9.3-17.3); White Blood Count 34.3 T/CUMM (4-12)
[2018-04-02 14:23] LABS: Glucose 1087 MG/DL (74-106); Potassium 6.4 MMOL/L (3.5-5.1)
[2018-04-02 14:28] LABS: Apearance,Urine CLEAR (Clear); Bacteria,Urine Occasional /HPF (Few); Bilirubin,Urine Negative (Negative); Blood, Urine Small mg/dL (Negative); Glucose,Urine (UA) >=500 mg/dL (Negative); Hyaline Casts,Urine 2 /LPF (0-3); Ketones,Urine 20 mg/dL (Negative); Mucus,Urine Occasional /LPF (Occasional); Nitrite,Urine Negative (Negative); Protein,Urine Negative; RBC,Urine 1 /HPF (0-4); Squamous Epithelial Cell,Urine Occasional /HPF (0-10); Urine Color Straw (Yellow); Urine Specific Gravity 1.015 (1.001-1.035); Urine Urobilinogen < 2.0 EU/DL (0.2-1.0); WBC,Urine 1 /HPF (0-6)
[2018-04-02 14:41] LABS: ABG Base Excess -26.5 MMOL/L (-2.5-2.5); ABG HCO3 6.4 MMOL/L (20-26); ABG Oxygen Saturation 95.3 % (95-100); ABG TCO2 3.5 MMOL/L (23-27); Allen Test Positive; Pt O2 Delivery Device Room Air
[2018-04-02 14:43] LABS: ABG PCO2 13.4 MM HG (35-48); ABG PH 7.038 (7.35-7.45)
[2018-04-02] MEDS: INSULIN REGULAR DRIP 100 ML IV PRN (14:58)
[2018-04-02] MEDS ORDERED: SODIUM BICARBONATE 50 MEQ/50 ML VIAL IV STA (15:12)
[2018-04-02] MEDS ORDERED: SODIUM BICARBONATE 50 MEQ/50 ML SYRINGE IV ONE (15:20)
[2018-04-02] MEDS ORDERED: SODIUM BICARB INJ 100 MEQ in STERILE WATER INJ 400 ML IV PRN (15:39)
[2018-04-02] MEDS ORDERED: DEXTROSE 50% 25 GM/50 ML VIAL IV PRN (15:39)
[2018-04-02] MEDS ORDERED: MAGNESIUM SULF RIDER 4 GM in PREMIX 1 EACH IV PRN (15:39)
[2018-04-02] MEDS ORDERED: MAGNESIUM SULF RIDER 2 GM in PREMIX 1 EACH IV PRN (15:39)
[2018-04-02] MEDS ORDERED: SODIUM POLYSTYRENE SULFATE 15 GM/60 ML BOTTLE PO STA (15:54)
[2018-04-02] MEDS ORDERED: ALBUTEROL 2.5 MG/3 ML NEB RESP TX PRN (16:00)
[2018-04-02] MEDS ORDERED: INSULIN REGULAR 100 UNIT/ML IV ONE (16:10)
[2018-04-02] MEDS: SODIUM CHLORIDE 0.9% 1,000 ML IV SCH ×2 (16:54→18:54)
[2018-04-02 17:21] LABS: Calcium 8.3 MG/DL (8.5-10.1); Osmolality,Calculated 322.5 MOS/KG (273-304); Potassium 4.8 MMOL/L (3.5-5.1)
[2018-04-02 17:36] LABS: Lymphocytes 8 % (20-55); Platelet Estimate Normal; Polychromasia Slight; Segmented Neutrophils 81 % (50-85); Total Cells Counted 100
[2018-04-02] MEDS: PANTOPRAZOLE 40 MG VIAL IV SCH (18:21)
[2018-04-02] MEDS ORDERED: POTASSIUM CHLORIDE RIDER 10 MEQ in PREMIX 1 EACH IV ONE (19:00)
[2018-04-02 20:37] LABS: Osmolality,Calculated 311.8 MOS/KG (273-304); Potassium 4.2 MMOL/L (3.5-5.1)
[2018-04-02] MEDS ORDERED: SODIUM CHLORIDE 0.9% 1,000 ML IV SCH (21:30)
[2018-04-03] MEDS: ONDANSETRON 4 MG/2 ML VIAL IV PRN ×2 (00:01→20:53)
[2018-04-03 00:59] LABS: Osmolality,Calculated 312.1 MOS/KG (273-304); Potassium 4.4 MMOL/L (3.5-5.1)
[2018-04-03] MEDS: SODIUM CHLOR 0.45% KCL 20 MEQ 20 MEQ/1,000 ML BAG IV SCH ×6 (01:22→21:33)
[2018-04-03] MEDS: DEXT 5% NACL 0.45% KCL 20 MEQ 20 MEQ/1,000 ML BAG IV SCH ×3 (03:55→13:38)
[2018-04-03 04:18] LABS: Calcium 8.4 MG/DL (8.5-10.1); Osmolality,Calculated 301.4 MOS/KG (273-304); Potassium 4.2 MMOL/L (3.5-5.1)
[2018-04-03 04:20] LABS: Basophils % 0.2 % (0.0-0.8); Hematocrit 36.1 VOL% (35.7-47.0); Hemoglobin 11.3 GM/DL (12.0-16.0); Immature Granulocytes % 2.5 %; Immature Granulocytes Absolute 0.58 #; Lymphocytes # 2.2 10*3/uL (1.4-4.0); Lymphocytes % 9.4 % (21.3-54.2); Mean Corpuscular HGB Conc 31.3 GM/DL (32-36); Mean Corpuscular Hemoglobin 31 PG (27-34); Mean Corpuscular Volume 98.6 FL (87-102); Mean Platelet Volume 13.1 FL (9.6-12.0); Monocytes # 2.2 10*3/uL (0.11-0.8); Monocytes % 9.3 % (1.7-12.7); NRBC # 0.02 10*3/uL; Neutrophils # 18.5 10*3/uL (1.4-7.4); Neutrophils % 78.6 % (38.7-73.9); Platelet Count 161 T/CUMM (130-400); Red Blood Count 3.66 MC/CUMM (3.8-5.5); Red Cell Distribution Width 16.9 % (9.3-17.3); White Blood Count 23.6 T/CUMM (4-12)
[2018-04-03 04:54] LABS: Band Neutrophils 4 % (0-10); Lymphocytes 21 % (20-55); Macrocytosis 2+; Platelet Estimate Normal; Segmented Neutrophils 71 % (50-85); Total Cells Counted 100
[2018-04-03 07:51] LABS: Calcium 8.3 MG/DL (8.5-10.1); Osmolality,Calculated 300.4 MOS/KG (273-304); Potassium 4.3 MMOL/L (3.5-5.1)
[2018-04-03] MEDS ORDERED: SODIUM CHLORIDE 0.45% 1,000 ML IV SCH (09:00)
[2018-04-03] MEDS: SODIUM PHOSPHATE INJ 21.5 MMOL in SODIUM CHLORIDE 0.9% 250 ML IV PRN (09:36)
[2018-04-03] MEDS: INSULIN REGULAR DRIP 100 ML IV PRN (10:15)
[2018-04-03 11:56] LABS: Barbiturates Screen,Urine Negative (Negative); Benzodiazepines Screen,Urine Negative (Negative); Cannabinoid Screen,Urine Negative (Negative); Opiate Screen,Urine Positive (Negative); Phencyclidine Screen,Urine Negative (Negative)
[2018-04-03 12:09] LABS: Calcium 8.4 MG/DL (8.5-10.1); Osmolality,Calculated 300.1 MOS/KG (273-304); Potassium 3.6 MMOL/L (3.5-5.1)
[2018-04-03] MEDS ORDERED: GLUCAGON 1 MG VIAL IM PRN ×2 (14:09→16:17)
[2018-04-03] MEDS ORDERED: DEXTROSE 50% 25 GM/50 ML VIAL IV PRN (16:17)
[2018-04-03] MEDS: PANTOPRAZOLE 40 MG VIAL IV SCH (16:19)
[2018-04-03] MEDS: METOCLOPRAMIDE 5 MG TABLET PO SCH ×2 (16:23→20:36)
[2018-04-03] MEDS: INSULIN LISPRO 100 UNIT/ML SUBCUT SCH ×2 (16:25→20:39)
[2018-04-03 20:04] LABS: Calcium 8.8 MG/DL (8.5-10.1); Osmolality,Calculated 297.4 MOS/KG (273-304); Potassium 3.8 MMOL/L (3.5-5.1)
[2018-04-03] MEDS: INSULIN GLARGINE 100 UNIT/ML SUBCUT SCH (20:39)
[2018-04-03] MEDS ORDERED: LISINOPRIL 10 MG TABLET PO ONE (21:00)
[2018-04-03] MEDS ORDERED: ESCITALOPRAM 10 MG TABLET PO ONE (21:11)
[2018-04-03] MEDS ORDERED: ACETAMINOPHEN 325 MG TABLET PO PRN (21:13)
[2018-04-03] MEDS: PREGABALIN 75 MG CAPSULE PO SCH (21:20)
[2018-04-04] MEDS: SODIUM CHLOR 0.45% KCL 20 MEQ 20 MEQ/1,000 ML BAG IV SCH ×6 (01:00→23:37)
[2018-04-04] MEDS: ONDANSETRON 4 MG/2 ML VIAL IV PRN ×4 (03:15→16:54)
[2018-04-04 05:12] LABS: Basophils % 0.2 % (0.0-0.8); Eosinophils % 0.1 % (0.00-10.9); Hematocrit 32.7 VOL% (35.7-47.0); Hemoglobin 10.4 GM/DL (12.0-16.0); Immature Granulocytes % 0.7 %; Immature Granulocytes Absolute 0.11 #; Lymphocytes # 1.6 10*3/uL (1.4-4.0); Mean Corpuscular HGB Conc 31.8 GM/DL (32-36); Mean Corpuscular Hemoglobin 31 PG (27-34); Mean Corpuscular Volume 96.5 FL (87-102); Mean Platelet Volume 12.5 FL (9.6-12.0); Monocytes # 1.2 10*3/uL (0.11-0.8); Monocytes % 7.1 % (1.7-12.7); NRBC # 0.02 10*3/uL; Neutrophils # 13.3 10*3/uL (1.4-7.4); Neutrophils % 81.9 % (38.7-73.9); Platelet Count 221 T/CUMM (130-400); Red Blood Count 3.39 MC/CUMM (3.8-5.5); Red Cell Distribution Width 17.4 % (9.3-17.3); White Blood Count 16.3 T/CUMM (4-12)
[2018-04-04 05:26] LABS: Calcium 8.5 MG/DL (8.5-10.1); Osmolality,Calculated 290.1 MOS/KG (273-304); Potassium 3.9 MMOL/L (3.5-5.1)
[2018-04-04] MEDS: PREGABALIN 75 MG CAPSULE PO SCH ×2 (08:49→21:32)
[2018-04-04] MEDS: LISINOPRIL 10 MG TABLET PO SCH (08:50)
[2018-04-04] MEDS: INSULIN LISPRO 100 UNIT/ML SUBCUT SCH ×4 (08:50→21:42)
[2018-04-04] MEDS: INSULIN GLARGINE 100 UNIT/ML SUBCUT SCH ×2 (08:50→21:42)
[2018-04-04] MEDS: ESCITALOPRAM 10 MG TABLET PO SCH (08:50)
[2018-04-04] MEDS: METOCLOPRAMIDE 5 MG TABLET PO SCH ×4 (08:50→21:32)
[2018-04-04] MEDS: INSULIN REGULAR 100 UNIT/ML SUBCUT SCH ×2 (12:23→17:25)
[2018-04-04] MEDS: PANTOPRAZOLE 40 MG VIAL IV SCH (16:35)
[2018-04-04] MEDS: DEXTROSE 50% 25 GM/50 ML VIAL IV PRN (16:35)
[2018-04-04] MEDS ORDERED: PHENOL 1.4% THROAT SPRAY 177 ML BOTTLE PO PRN (20:43)
[2018-04-04] MEDS ORDERED: PROMETHAZINE 25 MG/1 ML VIAL ONE (20:45)
[2018-04-04] MEDS: PROMETHAZINE 25 MG/1 ML VIAL IM PRN (20:50)
[2018-04-04 21:26] LABS: Calcium 8.7 MG/DL (8.5-10.1); Potassium 4.3 MMOL/L (3.5-5.1)
[2018-04-05] MEDS: ONDANSETRON 4 MG/2 ML VIAL IV PRN ×5 (01:27→20:23)
[2018-04-05] MEDS: PROMETHAZINE 25 MG/1 ML VIAL IM PRN (03:45)
[2018-04-05 04:54] LABS: Basophils % 0.4 % (0.0-0.8); Eosinophils # 0.1 10*3/uL (0.0-0.87); Eosinophils % 0.5 % (0.00-10.9); Hematocrit 33.6 VOL% (35.7-47.0); Immature Granulocytes % 0.4 %; Immature Granulocytes Absolute 0.04 #; Lymphocytes # 1.8 10*3/uL (1.4-4.0); Lymphocytes % 17.4 % (21.3-54.2); Mean Corpuscular HGB Conc 32.7 GM/DL (32-36); Mean Corpuscular Hemoglobin 31 PG (27-34); Mean Corpuscular Volume 93.1 FL (87-102); Mean Platelet Volume 11.7 FL (9.6-12.0); Monocytes # 0.9 10*3/uL (0.11-0.8); Monocytes % 8.7 % (1.7-12.7); Neutrophils # 7.3 10*3/uL (1.4-7.4); Neutrophils % 72.6 % (38.7-73.9); Platelet Count 218 T/CUMM (130-400); Red Blood Count 3.61 MC/CUMM (3.8-5.5); Red Cell Distribution Width 16.8 % (9.3-17.3); White Blood Count 10.1 T/CUMM (4-12)
[2018-04-05] MEDS: SODIUM CHLOR 0.45% KCL 20 MEQ 20 MEQ/1,000 ML BAG IV SCH ×4 (05:00→19:36)
[2018-04-05 05:25] LABS: Calcium 8.5 MG/DL (8.5-10.1); Osmolality,Calculated 284.5 MOS/KG (273-304); Potassium 3.9 MMOL/L (3.5-5.1)
[2018-04-05] MEDS: INSULIN REGULAR 100 UNIT/ML SUBCUT SCH ×3 (08:33→16:56)
[2018-04-05] MEDS ORDERED: POLYETHYLENE GLYCOL POWDER 17 GM PACK PO SCH (09:00)
[2018-04-05] MEDS: DOCUSATE SODIUM 100 MG CAPSULE PO SCH ×2 (09:06→20:24)
[2018-04-05] MEDS: ESCITALOPRAM 10 MG TABLET PO SCH (09:06)
[2018-04-05] MEDS: METOCLOPRAMIDE 5 MG TABLET PO SCH ×4 (09:06→20:23)
[2018-04-05] MEDS: PREGABALIN 75 MG CAPSULE PO SCH ×2 (09:07→20:24)
[2018-04-05] MEDS: LISINOPRIL 10 MG TABLET PO SCH (09:07)
[2018-04-05] MEDS: INSULIN GLARGINE 100 UNIT/ML SUBCUT SCH ×2 (09:09→20:26)
[2018-04-05] MEDS: INSULIN LISPRO 100 UNIT/ML SUBCUT SCH ×4 (09:10→20:25)
[2018-04-05] MEDS: SODIUM PHOSPHATE INJ 21.5 MMOL in SODIUM CHLORIDE 0.9% 250 ML IV PRN (10:52)
[2018-04-05] MEDS ORDERED: LORazepam 2 MG/1 ML VIAL ONE (12:17)
[2018-04-05] MEDS: LORazepam 2 MG/1 ML VIAL IV PRN ×2 (12:39→23:36)
[2018-04-05] MEDS ORDERED: POLYETHYLENE GLYCOL POWDER 255 GM BOTTLE PO ONE (12:55)
[2018-04-05] MEDS: ALUM/MAG/SIMETH/LIDO VISC 1:1 30 ML BOTTLE PO PRN (13:35)
[2018-04-05 13:59] LABS: % Iron Saturation 33.2 % (18-50); Ferritin 65.1 ng/ml (8-252); Thyroid Stimulating Hormone 0.43 uIU/ml (0.358-3.74)
[2018-04-05 14:01] LABS: Folate 11.6 NG/ML (5.4-24.0)
[2018-04-05] MEDS: PANTOPRAZOLE 40 MG VIAL IV SCH (16:55)
[2018-04-05] MEDS: PROMETHAZINE 25 MG SUPP RECTAL PRN (23:06)
[2018-04-06] MEDS: ONDANSETRON 4 MG/2 ML VIAL IV PRN ×5 (01:20→20:33)
[2018-04-06] MEDS: SODIUM CHLOR 0.45% KCL 20 MEQ 20 MEQ/1,000 ML BAG IV SCH ×4 (02:05→14:59)
[2018-04-06] MEDS: ALUM/MAG/SIMETH/LIDO VISC 1:1 30 ML BOTTLE PO PRN (05:05)
[2018-04-06 05:21] LABS: Basophils % 0.4 % (0.0-0.8); Eosinophils # 0.2 10*3/uL (0.0-0.87); Eosinophils % 1.9 % (0.00-10.9); Hematocrit 33.6 VOL% (35.7-47.0); Hemoglobin 11.2 GM/DL (12.0-16.0); Immature Granulocytes % 0.4 %; Immature Granulocytes Absolute 0.03 #; Lymphocytes % 24.6 % (21.3-54.2); Mean Corpuscular HGB Conc 33.3 GM/DL (32-36); Mean Corpuscular Hemoglobin 31 PG (27-34); Mean Corpuscular Volume 91.8 FL (87-102); Mean Platelet Volume 11.5 FL (9.6-12.0); Monocytes # 0.9 10*3/uL (0.11-0.8); Monocytes % 10.6 % (1.7-12.7); Neutrophils % 62.1 % (38.7-73.9); Platelet Count 240 T/CUMM (130-400); Red Blood Count 3.66 MC/CUMM (3.8-5.5); Red Cell Distribution Width 16.1 % (9.3-17.3); White Blood Count 8.1 T/CUMM (4-12)
[2018-04-06 05:33] LABS: Calcium 7.7 MG/DL (8.5-10.1); Osmolality,Calculated 281.1 MOS/KG (273-304); Potassium 3.4 MMOL/L (3.5-5.1)
[2018-04-06] MEDS: POTASSIUM CHLORIDE RIDER 10 MEQ in PREMIX 1 EACH IV PRN (06:28)
[2018-04-06] MEDS: INSULIN REGULAR 100 UNIT/ML SUBCUT SCH ×3 (08:14→17:06)
[2018-04-06] MEDS: INSULIN LISPRO 100 UNIT/ML SUBCUT SCH ×4 (08:18→20:34)
[2018-04-06] MEDS: LISINOPRIL 10 MG TABLET PO SCH (09:17)
[2018-04-06] MEDS: METOCLOPRAMIDE 5 MG TABLET PO SCH ×4 (09:17→20:33)
[2018-04-06] MEDS: INSULIN GLARGINE 100 UNIT/ML SUBCUT SCH ×2 (09:18→20:34)
[2018-04-06] MEDS: ESCITALOPRAM 10 MG TABLET PO SCH ×2 (09:18→17:12)
[2018-04-06] MEDS: DOCUSATE SODIUM 100 MG CAPSULE PO SCH ×2 (09:18→20:36)
[2018-04-06] MEDS ORDERED: POTASSIUM PHOSPHATE 30 MMOL in SODIUM CHLORIDE 0.9% 250 ML IV ONE (09:30)
[2018-04-06] MEDS: PREGABALIN 75 MG CAPSULE PO SCH ×3 (09:31→20:33)
[2018-04-06] MEDS: LORazepam 2 MG/1 ML VIAL IV PRN ×3 (09:31→20:33)
[2018-04-06] MEDS: ALPRAZolam 0.25 MG TABLET PO PRN ×2 (11:51→18:04)
[2018-04-06] MEDS: PANTOPRAZOLE 40 MG VIAL IV SCH (16:49)
[2018-04-06] MEDS: ZALEPLON 5 MG CAPSULE PO PRN (20:33)
[2018-04-06] MEDS: FAMOTIDINE 20 MG TABLET PO SCH (20:34)
[2018-04-07] MEDS: SODIUM CHLOR 0.45% KCL 20 MEQ 20 MEQ/1,000 ML BAG IV SCH ×3 (00:53→13:44)
[2018-04-07] MEDS: ONDANSETRON 4 MG/2 ML VIAL IV PRN ×3 (01:25→20:01)
[2018-04-07 03:24] LABS: Basophils % 0.5 % (0.0-0.8); Eosinophils # 0.2 10*3/uL (0.0-0.87); Eosinophils % 1.9 % (0.00-10.9); Hematocrit 35.2 VOL% (35.7-47.0); Hemoglobin 11.4 GM/DL (12.0-16.0); Immature Granulocytes % 0.4 %; Immature Granulocytes Absolute 0.03 #; Lymphocytes # 1.7 10*3/uL (1.4-4.0); Lymphocytes % 20.9 % (21.3-54.2); Mean Corpuscular HGB Conc 32.4 GM/DL (32-36); Mean Corpuscular Hemoglobin 31 PG (27-34); Mean Corpuscular Volume 94.1 FL (87-102); Mean Platelet Volume 11.5 FL (9.6-12.0); Monocytes # 0.8 10*3/uL (0.11-0.8); Neutrophils # 5.5 10*3/uL (1.4-7.4); Neutrophils % 66.3 % (38.7-73.9); Platelet Count 269 T/CUMM (130-400); Red Blood Count 3.74 MC/CUMM (3.8-5.5); Red Cell Distribution Width 15.9 % (9.3-17.3); White Blood Count 8.3 T/CUMM (4-12)
[2018-04-07 04:15] LABS: Calcium 8.1 MG/DL (8.5-10.1); Osmolality,Calculated 281.3 MOS/KG (273-304); Potassium 3.7 MMOL/L (3.5-5.1)
[2018-04-07] MEDS: PROMETHAZINE 25 MG SUPP RECTAL PRN (04:15)
[2018-04-07] MEDS: LORazepam 2 MG/1 ML VIAL IV PRN ×2 (08:40→20:01)
[2018-04-07] MEDS: PROMETHAZINE 25 MG/1 ML VIAL IM PRN ×2 (08:45→16:26)
[2018-04-07] MEDS: DOCUSATE SODIUM 100 MG CAPSULE PO SCH ×2 (09:10→20:00)
[2018-04-07] MEDS: FAMOTIDINE 20 MG TABLET PO SCH ×2 (09:12→20:00)
[2018-04-07] MEDS: INSULIN LISPRO 100 UNIT/ML SUBCUT SCH ×4 (09:13→20:14)
[2018-04-07] MEDS: INSULIN GLARGINE 100 UNIT/ML SUBCUT SCH ×3 (09:13→20:14)
[2018-04-07] MEDS: METOCLOPRAMIDE 5 MG TABLET PO SCH ×4 (09:14→20:00)
[2018-04-07] MEDS: INSULIN REGULAR 100 UNIT/ML SUBCUT SCH ×3 (09:14→16:15)
[2018-04-07] MEDS: LISINOPRIL 10 MG TABLET PO SCH (09:15)
[2018-04-07] MEDS: PREGABALIN 75 MG CAPSULE PO SCH ×3 (09:24→20:00)
[2018-04-07] MEDS: ALUM/MAG/SIMETH/LIDO VISC 1:1 30 ML BOTTLE PO PRN ×3 (09:25→23:27)
[2018-04-07] MEDS: POTASSIUM CHLORIDE RIDER 10 MEQ in PREMIX 1 EACH IV PRN ×2 (12:30→16:25)
[2018-04-07] MEDS: ESCITALOPRAM 10 MG TABLET PO SCH (16:26)
[2018-04-07] MEDS: PANTOPRAZOLE 40 MG VIAL IV SCH (16:30)
[2018-04-07] MEDS: ALPRAZolam 0.25 MG TABLET PO PRN (20:00)
[2018-04-07] MEDS: ZALEPLON 5 MG CAPSULE PO PRN (20:00)
[2018-04-07] MEDS ORDERED: POTASSIUM CHLORIDE 20 MEQ TABLET PO PRN (20:11)
[2018-04-07] MEDS: DEXTROSE 50% 25 GM/50 ML VIAL IV PRN (20:27)
[2018-04-07 22:57] LABS: IgA Serum (MAYO) 293 mg/dL (61 - 356)
[2018-04-08] MEDS: LORazepam 2 MG/1 ML VIAL IV PRN (03:25)
[2018-04-08] MEDS: SODIUM CHLOR 0.45% KCL 20 MEQ 20 MEQ/1,000 ML BAG IV SCH ×3 (03:28→18:57)
[2018-04-08 04:54] LABS: Basophils # 0.1 10*3/uL (0.0-0.2); Basophils % 0.6 % (0.0-0.8); Eosinophils # 0.1 10*3/uL (0.0-0.87); Eosinophils % 1.7 % (0.00-10.9); Hematocrit 34.5 VOL% (35.7-47.0); Hemoglobin 11.3 GM/DL (12.0-16.0); Immature Granulocytes % 0.4 %; Immature Granulocytes Absolute 0.03 #; Lymphocytes # 2.3 10*3/uL (1.4-4.0); Lymphocytes % 27.2 % (21.3-54.2); Mean Corpuscular HGB Conc 32.8 GM/DL (32-36); Mean Corpuscular Hemoglobin 31 PG (27-34); Mean Corpuscular Volume 93.8 FL (87-102); Mean Platelet Volume 11.8 FL (9.6-12.0); Monocytes % 11.6 % (1.7-12.7); Neutrophils # 4.9 10*3/uL (1.4-7.4); Neutrophils % 58.5 % (38.7-73.9); Platelet Count 294 T/CUMM (130-400); Red Blood Count 3.68 MC/CUMM (3.8-5.5); Red Cell Distribution Width 16.1 % (9.3-17.3); White Blood Count 8.4 T/CUMM (4-12)
[2018-04-08] MEDS: ONDANSETRON 4 MG/2 ML VIAL IV PRN ×3 (05:05→14:51)
[2018-04-08 05:19] LABS: Calcium 7.6 MG/DL (8.5-10.1); Osmolality,Calculated 278.8 MOS/KG (273-304); Potassium 4.6 MMOL/L (3.5-5.1)
[2018-04-08] MEDS: ALPRAZolam 0.25 MG TABLET PO PRN ×2 (06:04→20:32)
[2018-04-08] MEDS: ALUM/MAG/SIMETH/LIDO VISC 1:1 30 ML BOTTLE PO PRN ×3 (06:09→18:04)
[2018-04-08] MEDS: INSULIN GLARGINE 100 UNIT/ML SUBCUT SCH ×2 (08:11→20:32)
[2018-04-08] MEDS ORDERED: LIDOCAINE 1% 5 ML VIAL ONE (10:00)
[2018-04-08] MEDS ORDERED: PROPOFOL 200 MG/20 ML VIAL IV ONE (10:00)
[2018-04-08] MEDS ORDERED: ONDANSETRON 4 MG/2 ML VIAL ONE (10:00)
[2018-04-08] MEDS: INSULIN LISPRO 100 UNIT/ML SUBCUT SCH ×4 (10:01→23:02)
[2018-04-08] MEDS: INSULIN REGULAR 100 UNIT/ML SUBCUT SCH ×3 (10:02→16:14)
[2018-04-08] MEDS: METOCLOPRAMIDE 5 MG TABLET PO SCH ×4 (10:15→20:32)
[2018-04-08] MEDS: FAMOTIDINE 20 MG TABLET PO SCH ×2 (10:26→20:31)
[2018-04-08] MEDS: LISINOPRIL 10 MG TABLET PO SCH (10:26)
[2018-04-08] MEDS: DOCUSATE SODIUM 100 MG CAPSULE PO SCH ×2 (10:26→20:31)
[2018-04-08] MEDS: PREGABALIN 75 MG CAPSULE PO SCH ×2 (10:26→20:32)
[2018-04-08] MEDS: SUCRALFATE 1 GM/10 ML UDCUP PO SCH ×3 (12:40→20:36)
[2018-04-08] MEDS: PANTOPRAZOLE 40 MG VIAL IV SCH (16:26)
[2018-04-08] MEDS: ESCITALOPRAM 10 MG TABLET PO SCH (16:27)
[2018-04-08] MEDS: PROMETHAZINE 25 MG/1 ML VIAL IM PRN (23:50)
[2018-04-09] MEDS: SODIUM CHLOR 0.45% KCL 20 MEQ 20 MEQ/1,000 ML BAG IV SCH (04:54)
[2018-04-09] MEDS: ONDANSETRON 4 MG/2 ML VIAL IV PRN (04:55)
[2018-04-09] MEDS: INSULIN LISPRO 100 UNIT/ML SUBCUT SCH ×4 (07:43→20:54)
[2018-04-09] MEDS: INSULIN REGULAR 100 UNIT/ML SUBCUT SCH ×3 (07:43→16:21)
[2018-04-09] MEDS: FAMOTIDINE 20 MG TABLET PO SCH ×2 (08:45→20:53)
[2018-04-09] MEDS: METOCLOPRAMIDE 5 MG TABLET PO SCH ×4 (08:45→20:23)
[2018-04-09] MEDS: PREGABALIN 75 MG CAPSULE PO SCH ×2 (08:45→20:24)
[2018-04-09] MEDS: DOCUSATE SODIUM 100 MG CAPSULE PO SCH ×2 (08:45→20:24)
[2018-04-09] MEDS: LISINOPRIL 10 MG TABLET PO SCH (08:45)
[2018-04-09] MEDS: SUCRALFATE 1 GM/10 ML UDCUP PO SCH ×4 (08:45→20:24)
[2018-04-09] MEDS: INSULIN GLARGINE 100 UNIT/ML SUBCUT SCH ×3 (08:53→22:11)
[2018-04-09] MEDS: PROMETHAZINE 25 MG/1 ML VIAL IM PRN ×2 (08:53→16:19)
[2018-04-09] MEDS: ALUM/MAG/SIMETH/LIDO VISC 1:1 30 ML BOTTLE PO PRN ×2 (11:07→23:42)
[2018-04-09] MEDS: PANTOPRAZOLE 40 MG VIAL IV SCH (12:46)
[2018-04-09] MEDS: ESCITALOPRAM 10 MG TABLET PO SCH (16:26)
[2018-04-09] MEDS: ZALEPLON 5 MG CAPSULE PO PRN (20:23)
[2018-04-10] MEDS: PROMETHAZINE 25 MG/1 ML VIAL IM PRN ×3 (00:06→16:08)
[2018-04-10] MEDS: INSULIN LISPRO 100 UNIT/ML SUBCUT SCH ×4 (07:30→23:58)
[2018-04-10] MEDS: INSULIN GLARGINE 100 UNIT/ML SUBCUT SCH ×2 (09:00→23:58)
[2018-04-10] MEDS: ALUM/MAG/SIMETH/LIDO VISC 1:1 30 ML BOTTLE PO PRN ×2 (09:51→20:35)
[2018-04-10] MEDS: SUCRALFATE 1 GM/10 ML UDCUP PO SCH ×5 (09:52→20:29)
[2018-04-10] MEDS: FAMOTIDINE 20 MG TABLET PO SCH ×2 (09:53→20:29)
[2018-04-10] MEDS: METOCLOPRAMIDE 5 MG TABLET PO SCH ×4 (09:53→20:29)
[2018-04-10] MEDS: LISINOPRIL 10 MG TABLET PO SCH (09:53)
[2018-04-10] MEDS: LANSOPRAZOLE ODT 30 MG TABLET PO SCH (09:53)
[2018-04-10] MEDS: PREGABALIN 75 MG CAPSULE PO SCH ×2 (09:53→20:29)
[2018-04-10] MEDS: ALPRAZolam 0.25 MG TABLET PO PRN ×2 (09:55→20:29)
[2018-04-10] MEDS: DOCUSATE SODIUM 100 MG CAPSULE PO SCH ×2 (09:55→20:29)
[2018-04-10] MEDS: INSULIN REGULAR 100 UNIT/ML SUBCUT SCH ×2 (09:57→16:06)
[2018-04-10] MEDS: ESCITALOPRAM 10 MG TABLET PO SCH (19:06)
[2018-04-10] MEDS: ZALEPLON 5 MG CAPSULE PO PRN (20:29)
[2018-04-10] MEDS: DEXTROSE 50% 25 GM/50 ML VIAL IV PRN (23:45)
[2018-04-11] MEDS: ONDANSETRON 4 MG/2 ML VIAL IV PRN ×2 (00:47→07:38)
[2018-04-11] MEDS ORDERED: MORPHINE 4 MG/1 ML VIAL IV ONE (05:03)
[2018-04-11] MEDS: SUCRALFATE 1 GM/10 ML UDCUP PO SCH (07:39)
[2018-04-11 07:48] VITALS: BP 131/71
[2018-04-11] MEDS: INSULIN LISPRO 100 UNIT/ML SUBCUT SCH (08:59)
[2018-04-11] MEDS: INSULIN REGULAR 100 UNIT/ML SUBCUT SCH (08:59)
[2018-04-11] MEDS: LANSOPRAZOLE ODT 30 MG TABLET PO SCH (09:01)
[2018-04-11] MEDS: INSULIN GLARGINE 100 UNIT/ML SUBCUT SCH (09:01)
[2018-04-11] MEDS: METOCLOPRAMIDE 5 MG TABLET PO SCH (09:01)
[2018-04-11] MEDS: FAMOTIDINE 20 MG TABLET PO SCH (09:01)
[2018-04-11] MEDS: DOCUSATE SODIUM 100 MG CAPSULE PO SCH (09:01)
[2018-04-11] MEDS: LISINOPRIL 10 MG TABLET PO SCH (09:01)
[2018-04-11] MEDS: PREGABALIN 75 MG CAPSULE PO SCH (09:01)
[2018-04-16 07:44] LABS: Tissue Transglutaminase IgA Ab < 1.2 U/mL
== END 2018-04-11 10:24 | disposition home or self-care (01) | DRG 420 ==
LOC: N.ED 12:34 → SUATTDRO 14:59 → N.EDINP 14:59 → N.ICU 15:27 → N.2E 04-08 14:28
PROVIDERS: ATTEND Internal Medicine Geriatric Medicine

== ENCOUNTER 2018-05-02 15:34 | Inpatient (IN) ==
[2018-05-02] MEDS ORDERED: SODIUM CHLORIDE 0.9% 2,000 ML IV STA (16:12)
[2018-05-02 17:22] LABS: Basophils # 0.1 10*3/uL (0.0-0.2); Basophils % 0.8 % (0.0-0.8); Eosinophils # 0.2 10*3/uL (0.0-0.87); Eosinophils % 1.5 % (0.00-10.9); Hematocrit 38.5 VOL% (35.7-47.0); Immature Granulocytes % 0.7 %; Immature Granulocytes Absolute 0.08 #; Lymphocytes % 17.3 % (21.3-54.2); Mean Corpuscular HGB Conc 31.2 GM/DL (32-36); Mean Corpuscular Hemoglobin 31 PG (27-34); Mean Corpuscular Volume 98.2 FL (87-102); Mean Platelet Volume 12.6 FL (9.6-12.0); Monocytes # 0.5 10*3/uL (0.11-0.8); Monocytes % 4.3 % (1.7-12.7); Neutrophils # 8.9 10*3/uL (1.4-7.4); Neutrophils % 75.4 % (38.7-73.9); Platelet Count 241 T/CUMM (130-400); Red Blood Count 3.92 MC/CUMM (3.8-5.5); Red Cell Distribution Width 16.1 % (9.3-17.3); White Blood Count 11.8 T/CUMM (4-12)
[2018-05-02] MEDS ORDERED: ONDANSETRON 4 MG/2 ML VIAL IV STA (17:34)
[2018-05-02] MEDS ORDERED: ONDANSETRON 4 MG/2 ML VIAL ONE (17:35)
[2018-05-02 17:46] LABS: Alanine Aminotransferase 17 U/L (13-56); Albumin 3.2 G/DL (3.4-5.0); Alkaline Phosphatase 97 U/L (45-117); Aspartate Amino Transferase 18 U/L (0-37); Blood Urea Nitrogen 18 MG/DL (7-18); Calcium 9.2 MG/DL (8.5-10.1); Osmolality,Calculated 294.8 MOS/KG (273-304); Potassium 5.7 MMOL/L (3.5-5.1); Sodium 130 MMOL/L (136-145); Total Protein 7.5 G/DL (6.4-8.3)
[2018-05-02 17:56] LABS: Apearance,Urine CLEAR (Clear); Bacteria,Urine Occasional /HPF (Few); Bilirubin,Urine Negative (Negative); Blood, Urine Negative (Negative); Glucose 690 MG/DL (74-106); Glucose,Urine (UA) >=500 mg/dL (Negative); Ketones,Urine 80 mg/dL (Negative); Lactic Acid 2.3 MMOL/L (0.4-2.0); Mucus,Urine Occasional /LPF (Occasional); Nitrite,Urine Negative (Negative); Protein,Urine Negative; RBC,Urine <1 /HPF (0-4); Squamous Epithelial Cell,Urine Occasional /HPF (0-10); Urine Color Straw (Yellow); Urine Specific Gravity 1.018 (1.001-1.035); Urine Urobilinogen < 2.0 EU/DL (0.2-1.0); WBC,Urine 2 /HPF (0-6)
[2018-05-02] MEDS ORDERED: INSULIN REGULAR 100 UNIT/ML IV STA (18:00)
[2018-05-02] MEDS ORDERED: DEXTROSE 50% 25 GM/50 ML VIAL IV PRN ×2 (18:00)
[2018-05-02] MEDS ORDERED: MAGNESIUM SULF RIDER 4 GM in PREMIX 1 EACH IV PRN (18:00)
[2018-05-02] MEDS ORDERED: INSULIN REGULAR 100 UNIT/ML IV ONE ×2 (18:00→23:53)
[2018-05-02] MEDS ORDERED: MAGNESIUM SULF RIDER 2 GM in PREMIX 1 EACH IV PRN (18:00)
[2018-05-02] MEDS ORDERED: POTASSIUM CHLORIDE RIDER 10 MEQ in PREMIX 1 EACH IV PRN (18:00)
[2018-05-02] MEDS ORDERED: INSULIN REGULAR DRIP 100 ML IV SCH (18:00)
[2018-05-02] MEDS ORDERED: MORPHINE 4 MG/1 ML VIAL ONE (18:03)
[2018-05-02] MEDS ORDERED: MORPHINE 4 MG/1 ML VIAL IV STA (18:04)
[2018-05-02] MEDS ORDERED: SODIUM BICARB INJ 100 MEQ in STERILE WATER INJ 400 ML IV PRN (20:08)
[2018-05-02] MEDS ORDERED: SODIUM PHOSPHATE IV PRN (20:08)
[2018-05-02] MEDS ORDERED: ALBUTEROL 2.5 MG/3 ML NEB RESP TX PRN (20:08)
[2018-05-02] MEDS ORDERED: SODIUM CHLORIDE 0.9% IV PRN (20:08)
[2018-05-02] MEDS ORDERED: SODIUM CHLORIDE 0.9% 1,000 ML IV ONE (20:30)
[2018-05-02 20:56] LABS: Osmolality,Calculated 299.7 MOS/KG (273-304); Potassium 4.9 MMOL/L (3.5-5.1)
[2018-05-02] MEDS: PROMETHAZINE 25 MG/1 ML VIAL IM PRN (20:56)
[2018-05-02] MEDS: PANTOPRAZOLE 40 MG VIAL IV SCH (21:13)
[2018-05-02] MEDS: ENOXAPARIN 40 MG/0.4 ML SYRINGE SUBCUT SCH (21:13)
[2018-05-02] MEDS: SODIUM CHLORIDE 0.9% 1,000 ML IV SCH ×4 (22:06→23:45)
[2018-05-02] MEDS: MORPHINE 4 MG/1 ML VIAL IV PRN (22:07)
[2018-05-02] MEDS ORDERED: GLUCAGON 1 MG VIAL IM PRN (22:59)
[2018-05-02] MEDS: ONDANSETRON 4 MG/2 ML VIAL IV PRN (23:46)
[2018-05-02] MEDS ORDERED: INSULIN REGULAR 100 UNIT/ML IV PRN (23:52)
[2018-05-03] MEDS: METOCLOPRAMIDE 10 MG/2 ML VIAL IV SCH ×4 (00:31→17:18)
[2018-05-03] MEDS ORDERED: GLUCAGON 1 MG VIAL IM PRN (00:59)
[2018-05-03] MEDS ORDERED: DEXTROSE 50% 25 GM/50 ML VIAL IV PRN (00:59)
[2018-05-03 01:40] LABS: Calcium 7.7 MG/DL (8.5-10.1); Osmolality,Calculated 295.4 MOS/KG (273-304); Potassium 4.9 MMOL/L (3.5-5.1)
[2018-05-03] MEDS: MORPHINE 4 MG/1 ML VIAL IV PRN ×5 (02:51→21:27)
[2018-05-03] MEDS: SODIUM CHLORIDE 0.9% 1,000 ML IV SCH (04:09)
[2018-05-03] MEDS ORDERED: INSULIN REGULAR 100 UNIT/ML IV ONE (04:13)
[2018-05-03 04:31] LABS: Basophils % 0.3 % (0.0-0.8); Eosinophils % 0.1 % (0.00-10.9); Hematocrit 31.8 VOL% (35.7-47.0); Hemoglobin 9.8 GM/DL (12.0-16.0); Immature Granulocytes % 0.6 %; Immature Granulocytes Absolute 0.07 #; Lymphocytes # 2.8 10*3/uL (1.4-4.0); Lymphocytes % 23.1 % (21.3-54.2); Mean Corpuscular HGB Conc 30.8 GM/DL (32-36); Mean Corpuscular Hemoglobin 30 PG (27-34); Mean Corpuscular Volume 97.2 FL (87-102); Mean Platelet Volume 12.2 FL (9.6-12.0); Monocytes # 0.7 10*3/uL (0.11-0.8); Monocytes % 5.4 % (1.7-12.7); Neutrophils # 8.7 10*3/uL (1.4-7.4); Neutrophils % 70.5 % (38.7-73.9); Platelet Count 239 T/CUMM (130-400); Red Blood Count 3.27 MC/CUMM (3.8-5.5); White Blood Count 12.3 T/CUMM (4-12)
[2018-05-03 04:46] LABS: Calcium 7.8 MG/DL (8.5-10.1); Osmolality,Calculated 292.3 MOS/KG (273-304); Potassium 4.6 MMOL/L (3.5-5.1)
[2018-05-03] MEDS: DEXTROSE 5% NACL 0.9% 1,000 ML IV SCH ×2 (06:53→12:11)
[2018-05-03 08:15] LABS: Calcium 7.3 MG/DL (8.5-10.1); Potassium 4.1 MMOL/L (3.5-5.1)
[2018-05-03] MEDS: ONDANSETRON 4 MG/2 ML VIAL IV PRN ×4 (08:45→21:30)
[2018-05-03] MEDS ORDERED: SODIUM CHLORIDE 0.45% 1,000 ML IV SCH (11:45)
[2018-05-03] MEDS ORDERED: ALUM/MAG/SIMETH/LIDO VISC 1:1 30 ML BOTTLE PO ONE (11:56)
[2018-05-03 13:16] LABS: Calcium 7.2 MG/DL (8.5-10.1); Potassium 3.6 MMOL/L (3.5-5.1)
[2018-05-03] MEDS: POTASSIUM CHLORIDE 20 MEQ TABLET PO SCH ×3 (13:46→21:35)
[2018-05-03] MEDS ORDERED: POTASSIUM CHLORIDE RIDER 10 MEQ in PREMIX 1 EACH IV SCH (14:00)
[2018-05-03] MEDS ORDERED: INSULIN REGULAR 100 UNIT/ML SUBCUT SCH (14:00)
[2018-05-03] MEDS: INSULIN REGULAR 100 UNIT/ML SUBCUT SCH ×2 (15:58→21:32)
[2018-05-03] MEDS: ENOXAPARIN 40 MG/0.4 ML SYRINGE SUBCUT SCH (21:33)
[2018-05-03] MEDS: PANTOPRAZOLE 40 MG VIAL IV SCH (21:36)
[2018-05-04] MEDS: METOCLOPRAMIDE 10 MG/2 ML VIAL IV SCH ×4 (00:38→17:14)
[2018-05-04] MEDS: PROMETHAZINE 25 MG/1 ML VIAL IM PRN ×2 (00:38→22:15)
[2018-05-04] MEDS: INSULIN REGULAR 100 UNIT/ML SUBCUT SCH ×3 (00:40→07:54)
[2018-05-04] MEDS: MORPHINE 4 MG/1 ML VIAL IV PRN ×4 (01:09→23:00)
[2018-05-04] MEDS: DEXTROSE 5% NACL 0.9% 1,000 ML IV SCH ×3 (01:36→22:30)
[2018-05-04 04:56] LABS: Basophils # 0.1 10*3/uL (0.0-0.2); Eosinophils # 0.2 10*3/uL (0.0-0.87); Eosinophils % 3.3 % (0.00-10.9); Hematocrit 31.5 VOL% (35.7-47.0); Hemoglobin 10.1 GM/DL (12.0-16.0); Immature Granulocytes % 0.3 %; Immature Granulocytes Absolute 0.02 #; Lymphocytes # 2.6 10*3/uL (1.4-4.0); Lymphocytes % 35.5 % (21.3-54.2); Mean Corpuscular HGB Conc 32.1 GM/DL (32-36); Mean Corpuscular Hemoglobin 31 PG (27-34); Mean Corpuscular Volume 95.7 FL (87-102); Monocytes # 0.4 10*3/uL (0.11-0.8); Monocytes % 5.9 % (1.7-12.7); Neutrophils # 3.9 10*3/uL (1.4-7.4); Platelet Count 234 T/CUMM (130-400); Red Blood Count 3.29 MC/CUMM (3.8-5.5); Red Cell Distribution Width 16.6 % (9.3-17.3); White Blood Count 7.3 T/CUMM (4-12)
[2018-05-04 05:08] LABS: Calcium 8.2 MG/DL (8.5-10.1); Osmolality,Calculated 286.4 MOS/KG (273-304)
[2018-05-04] MEDS: ONDANSETRON 4 MG/2 ML VIAL IV PRN ×2 (06:18→13:20)
[2018-05-04] MEDS ORDERED: INSULIN REGULAR DRIP 100 ML IV PRN (08:14)
[2018-05-04] MEDS: ACETAMINOPHEN 325 MG TABLET PO PRN ×2 (08:25→14:45)
[2018-05-04] MEDS ORDERED: ALUM/MAG/SIMETH/LIDO VISC 1:1 30 ML BOTTLE PO ONE (08:30)
[2018-05-04] MEDS: PREGABALIN 75 MG CAPSULE PO SCH ×2 (09:58→20:19)
[2018-05-04 13:06] LABS: Albumin 2.5 G/DL (3.4-5.0); Calcium 8.2 MG/DL (8.5-10.1); Osmolality,Calculated 283.3 MOS/KG (273-304); Potassium 3.9 MMOL/L (3.5-5.1)
[2018-05-04 13:10] LABS: Alanine Aminotransferase 13 U/L (13-56); Albumin 2.5 G/DL (3.4-5.0); Alkaline Phosphatase 59 U/L (45-117); Aspartate Amino Transferase 8 U/L (0-37); Bilirubin,Total < 0.39 MG/DL (0.2-1.0); Blood Urea Nitrogen 8 MG/DL (7-18); Calcium 8.1 MG/DL (8.5-10.1); Glucose 186 MG/DL (74-106); Osmolality,Calculated 279.5 MOS/KG (273-304); Potassium 3.6 MMOL/L (3.5-5.1); Sodium 139 MMOL/L (136-145); Total Protein 6.2 G/DL (6.4-8.3)
[2018-05-04 16:22] LABS: Calcium 8.2 MG/DL (8.5-10.1); Osmolality,Calculated 279.3 MOS/KG (273-304); Potassium 3.8 MMOL/L (3.5-5.1)
[2018-05-04] MEDS: ESCITALOPRAM 10 MG TABLET PO SCH (17:13)
[2018-05-04] MEDS: BUTALBITAL/ACETAMIN/CAFFEINE 50-325-40 MG TABLET PO PRN ×2 (17:13→23:35)
[2018-05-04] MEDS: PANTOPRAZOLE 40 MG VIAL IV SCH (20:15)
[2018-05-04] MEDS: ATORVASTATIN 40 MG TABLET PO SCH (20:19)
[2018-05-04] MEDS: ALUM/MAG/SIMETH/LIDO VISC 1:1 30 ML BOTTLE PO PRN (20:19)
[2018-05-04] MEDS: ENOXAPARIN 40 MG/0.4 ML SYRINGE SUBCUT SCH (20:19)
[2018-05-04] MEDS ORDERED: hydrALAZINE 10 MG TABLET PO PRN (23:26)
[2018-05-04] MEDS: LISINOPRIL 10 MG TABLET PO SCH (23:35)
[2018-05-04] MEDS: ALPRAZolam 0.25 MG TABLET PO PRN (23:35)
[2018-05-05] MEDS: METOCLOPRAMIDE 10 MG/2 ML VIAL IV SCH ×4 (00:15→17:52)
[2018-05-05] MEDS: ALUM/MAG/SIMETH/LIDO VISC 1:1 30 ML BOTTLE PO PRN ×2 (02:15→22:12)
[2018-05-05] MEDS: MORPHINE 4 MG/1 ML VIAL IV PRN ×5 (03:18→22:12)
[2018-05-05] MEDS: diphenhydrAMINE 50 MG/1 ML VIAL IV PRN ×2 (03:42→09:04)
[2018-05-05] MEDS: DEXTROSE 5% NACL 0.9% 1,000 ML IV SCH (04:04)
[2018-05-05] MEDS: PROMETHAZINE 25 MG/1 ML VIAL IM PRN ×2 (06:06→15:42)
[2018-05-05] MEDS: ONDANSETRON 4 MG/2 ML VIAL IV PRN ×2 (07:10→20:51)
[2018-05-05 08:32] LABS: Basophils % 0.8 % (0.0-0.8); Eosinophils # 0.3 10*3/uL (0.0-0.87); Eosinophils % 4.8 % (0.00-10.9); Hematocrit 31.8 VOL% (35.7-47.0); Hemoglobin 10.2 GM/DL (12.0-16.0); Immature Granulocytes % 0.2 %; Immature Granulocytes Absolute 0.01 #; Lymphocytes # 2.7 10*3/uL (1.4-4.0); Lymphocytes % 50.7 % (21.3-54.2); Mean Corpuscular HGB Conc 32.1 GM/DL (32-36); Mean Corpuscular Hemoglobin 31 PG (27-34); Mean Corpuscular Volume 96.7 FL (87-102); Mean Platelet Volume 11.9 FL (9.6-12.0); Monocytes # 0.4 10*3/uL (0.11-0.8); Monocytes % 7.8 % (1.7-12.7); Neutrophils # 1.9 10*3/uL (1.4-7.4); Neutrophils % 35.7 % (38.7-73.9); Platelet Count 216 T/CUMM (130-400); Red Blood Count 3.29 MC/CUMM (3.8-5.5); Red Cell Distribution Width 16.3 % (9.3-17.3); White Blood Count 5.3 T/CUMM (4-12)
[2018-05-05 08:46] LABS: Calcium 8.2 MG/DL (8.5-10.1); Osmolality,Calculated 278.3 MOS/KG (273-304); Potassium 3.4 MMOL/L (3.5-5.1)
[2018-05-05 09:00] LABS: Eosinophils 2 % (0-10); Lymphocytes 57 % (20-55); Platelet Estimate Normal; Segmented Neutrophils 36 % (50-85); Total Cells Counted 100
[2018-05-05] MEDS ORDERED: LISINOPRIL 10 MG TABLET PO SCH (09:00)
[2018-05-05 09:01] LABS: Anisocytosis 1+; Macrocytosis Slight
[2018-05-05] MEDS: PREGABALIN 75 MG CAPSULE PO SCH ×2 (09:04→20:50)
[2018-05-05] MEDS: LISINOPRIL 10 MG TABLET PO SCH (09:04)
[2018-05-05] MEDS: ALPRAZolam 0.25 MG TABLET PO PRN (09:05)
[2018-05-05] MEDS: INSULIN REGULAR 100 UNIT/ML SUBCUT SCH ×4 (13:25→20:50)
[2018-05-05] MEDS: ESCITALOPRAM 10 MG TABLET PO SCH (17:52)
[2018-05-05] MEDS: ENOXAPARIN 40 MG/0.4 ML SYRINGE SUBCUT SCH (20:50)
[2018-05-05] MEDS: PANTOPRAZOLE 40 MG TABLET PO SCH (20:50)
[2018-05-05] MEDS: ATORVASTATIN 40 MG TABLET PO SCH (20:50)
[2018-05-06] MEDS: diphenhydrAMINE 50 MG/1 ML VIAL IV PRN (01:18)
[2018-05-06] MEDS: METOCLOPRAMIDE 10 MG/2 ML VIAL IV SCH ×2 (01:22→05:37)
[2018-05-06 05:40] VITALS: BP 169/94
[2018-05-06] MEDS: INSULIN REGULAR 100 UNIT/ML SUBCUT SCH (07:56)
[2018-05-06] MEDS: ALUM/MAG/SIMETH/LIDO VISC 1:1 30 ML BOTTLE PO PRN (07:57)
[2018-05-06] MEDS: PREGABALIN 75 MG CAPSULE PO SCH (08:19)
[2018-05-06] MEDS: PANTOPRAZOLE 40 MG TABLET PO SCH (08:19)
[2018-05-06] MEDS: LISINOPRIL 10 MG TABLET PO SCH (08:19)
[2018-05-06] MEDS: MORPHINE 4 MG/1 ML VIAL IV PRN (09:46)
== END 2018-05-06 11:05 | disposition home or self-care (01) | DRG 420 ==
LOC: N.ED 15:34 → SUATTDRO 18:40 → N.EDINP 18:40 → N.ICU 19:55
PROVIDERS: ADMIT Internal Medicine; ATTEND Internal Medicine Geriatric Medicine